=== PATIENT | female | born 1975 | race Caucasian/White ===

== ENCOUNTER 2016-12-08 20:13 | Emergency (ER) | payer SELFPAY ==
[2016-12-08] MEDS ORDERED: Ibuprofen TAB* 600 MG PO ONE (20:34)
[2016-12-08] MEDS ORDERED: Amoxicillin CAP* 500 MG PO ONE (20:59)
--- NOTE | 2016-12-08 21:08 | UC ---
Throat Pain/Nasal Rafael HPI - HPI Summary HPI Summary: Sore throat since yesterday, today feverish, RENDON, and feeling much worse. 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 - History of Current Complaint Chief Complaint: UCGeneralIllness Stated Complaint: SORE THROAT,HEADACHE Time Seen by Provider: 12/08/16 20:33 Hx Obtained From: Patient Hx Last Menstrual Period: 11/09/16 ?: No Onset/Duration: Gradual Onset, Lasting Days Severity: Moderate Cough: None Associated Signs & Symptoms: Positive: Fever. Negative: Sinus Discomfort, Nasal Discharge - Allergies/Home Medications Allergies/Adverse Reactions: Allergies Allergy/AdvReac Type Severity Reaction Status Date / Time No Known Allergies Allergy Verified 06/21/14 15:46 PMH/Surg Hx/FS Hx/Imm Hx Endocrine History Of: Reports: Diabetes - gestational diabetes Denies: Thyroid Disease Cardiovascular History Of: Denies: Cardiac Disorders, Hypertension Respiratory History Of: Denies: COPD, Asthma GI/ History Of: Denies: Ulcer Psychological History Of: Reports: Depression - Surgical History Surgical History: None - Family History Known Family History: Positive: Hypertension - Social History Lives: With Family Alcohol Use: Occasionally Substance Use Type: None Smoking Status (MU): Never Smoked Tobacco Have You Smoked in the Last Year: No - Immunization History Most Recent Influenza Vaccination: 2015/2016 season Review of Systems Constitutional: Fever, Chills, Fatigue Skin: Negative Eyes: Negative ENT: Sore Throat Respiratory: Negative Cardiovascular: Negative Gastrointestinal: Negative Genitourinary: Negative Motor: Negative Neurovascular: Negative Musculoskeletal: Negative Neurological: Headache Psychological: Negative All Other Systems Reviewed And Are Negative: Yes Physical Exam Triage Information Reviewed: Yes Appearance: Ill-Appearing - lying on the exam table, febrile Vital Signs: Initial Vital Signs Temp 102.7 F 12/08/16 20:34 Pulse 111 12/08/16 20:34 Resp 18 12/08/16 20:34 BP 82/46 12/08/16 20:34 Pulse Ox 100 12/08/16 20:34 Vital Signs Reviewed: Yes Eye Exam: Normal Eyes: Positive: Conjunctiva Clear ENT: Positive: Hearing grossly normal, Pharyngeal erythema, TMs normal, Tonsillar swelling. Negative: Nasal congestion Dental Exam: Normal Neck: Positive: Supple, Nontender, Enlarged Nodes @ - tonsillar nodes Respiratory Exam: Normal Respiratory: Positive: Chest non-tender, Lungs clear, Normal breath sounds, No respiratory distress Cardiovascular: Positive: No Murmur, Tachycardia Musculoskeletal Exam: Normal Neurological Exam: Normal Neurological: Positive: Alert Psychological Exam: Normal Skin Exam: Normal Throat Pain/Nasal Course/Dx - Differential Dx/Diagnosis Provider Diagnoses: Strep tonsillitis Discharge - Discharge Plan Condition: Stable Disposition: HOME Prescriptions: Amoxicillin (*) [Amoxicillin 875 MG (*)] 875 mg PO BID #19 tab Patient Education Materials: Strep Throat (ED) Referrals: Landy Abreu MD [Primary Care Provider] -
[2016-12-08 21:18] VITALS: BP 122/66
== END 2016-12-08 21:10 | disposition home or self-care (01) ==
LOC: UCEAST 20:13
DX: J03.00 Acute streptococcal tonsillitis, unspecified (principal); F32.9 Major depressive disorder, single episode, unspecified
CPT/HCPCS: 87651; 99212; A9270-GY; G0463

== ENCOUNTER 2017-08-16 13:35 | Emergency (ER) | payer OTHER ==
[2017-08-16 13:50] VITALS: BP 107/60
--- NOTE | 2017-08-16 14:21 | UC ---
General HPI - HPI Summary HPI Summary: 41 yo WF c/o fatigue associated with f/c/bodyaches/cough x 2 days, denies sore throat or sputum - History of Current Complaint Chief Complaint: UCGeneralIllness Stated Complaint: HEADACHE COUGH FEVER Time Seen by Provider: 08/16/17 14:13 Hx Obtained From: Patient Hx Last Menstrual Period: 07/30/17 Onset/Duration: Gradual Onset Onset Severity: Moderate Current Severity: Moderate - Allergy/Home Medications Allergies/Adverse Reactions: Allergies Allergy/AdvReac Type Severity Reaction Status Date / Time No Known Allergies Allergy Verified 08/16/17 13:42 Home Medications: Home Medications Acetaminophen TAB* [Tylenol TAB*] 650 mg PO Q4H PRN 08/16/17 [History Confirmed 08/16/17] guaiFENesin ER TAB [Mucinex*] 600 mg PO BID PRN 08/16/17 [History Confirmed 11/28] PMH/Surg Hx/FS Hx/Imm Hx - Surgical History Surgical History: None - Family History Known Family History: Positive: Hypertension - Social History Alcohol Use: Occasionally Substance Use Type: None Smoking Status (MU): Never Smoked Tobacco Have You Smoked in the Last Year: No - Immunization History Most Recent Influenza Vaccination: season Review of Systems Constitutional: Fever, Chills, Fatigue Skin: Negative Eyes: Negative ENT: Negative Respiratory: Cough Cardiovascular: Negative Gastrointestinal: Negative Genitourinary: Negative Motor: Weakness Neurovascular: Negative Musculoskeletal: Myalgia Neurological: Negative Psychological: Negative All Other Systems Reviewed And Are Negative: Yes Physical Exam Triage Information Reviewed: Yes Appearance: Ill-Appearing, Obese Vital Signs: Initial Vital Signs Temp 38.5 C 08/16/17 13:44 Pulse 106 08/16/17 13:44 Resp 18 08/16/17 13:44 BP 107/60 08/16/17 13:44 Pulse Ox 97 08/16/17 13:44 Eye Exam: Normal ENT: Positive: Pharynx normal, TMs normal. Negative: Tonsillar swelling, Tonsillar exudate Dental Exam: Normal Neck: Positive: Enlarged Nodes @ - B/L cervical LAD Respiratory Exam: Normal Respiratory: Positive: Normal breath sounds, No respiratory distress Cardiovascular Exam: Normal Abdominal Exam: Normal Musculoskeletal Exam: Normal Neurological Exam: Normal Psychological Exam: Normal Skin Exam: Normal Course/Dx - Course Course Of Treatment: Flu A positive on rapid flu- take Tamiflu as prescribed - Differential Dx - Multi-Symptom Provider Diagnoses: influenza A Discharge - Discharge Plan Condition: Stable Disposition: HOME Prescriptions: Oseltamivir Phosphate [Tamiflu] 75 mg PO BID 5 Days #10 cap Patient Education Materials: Influenza (ED) Referrals: Landy Abreu MD [Primary Care Provider] - Additional Instructions: as tolerated
== END 2017-08-16 15:05 | disposition home or self-care (01) ==
LOC: UCEAST 13:35
DX: J10.1 Influenza due to other identified influenza virus with other respiratory manifestations (principal)
CPT/HCPCS: 87502; 99212; G0463

== ENCOUNTER 2018-03-19 19:09 | Emergency (ER) | payer OTHER ==
--- NOTE | 2018-03-19 19:54 | ED ---
Lower Extremity - HPI Summary HPI Summary: This is scribe Wilberto Childers documenting for attending Lionel Lira M.D. Patient is a 42 y/o F BIBA w/ c/o left ankle pain onsetting 30 minutes ago. Patient states she was stepping into a car when she rolled her left ankle on the curb. She reports hearing a pop and experiencing left ankle pain immediately after. Patient states she had difficulty standing. On triage, pain is rated 8/10 and nothing is noted to aggravate/alleviate Sx. She states she takes Prozac. Home medications and allergies reviewed. I, Dr. Lira, personally performed the services described in this documentation as scribed in my presence and it is both accurate and complete. - History of Current Complaint Chief Complaint: EDExtremityLower Stated Complaint: LT ANKLE PAIN Time Seen by Provider: 03/19/18 19:25 Hx Obtained From: Patient Hx Last Menstrual Period: 07/30/17 Mechanism Of Injury: Twisted - left ankle, rolled on curb Onset of Pain: Immediate - pain onset immediately after rolling ankle Onset/Duration: Minutes - incident occurred 30 minutes ago Severity Currently: Severe Pain Intensity: 8 Pain Scale Used: 0-10 Numeric - 8/10 Timing: Constant Location: Is Discrete @ - left ankle Aggravating Factor(s): Nothing Alleviating Factor(s): Nothing Able to Bear Weight: No - patient states she had difficulty standing - Allergies/Home Medications Allergies/Adverse Reactions: Allergies Allergy/AdvReac Type Severity Reaction Status Date / Time No Known Allergies Allergy Verified 03/19/18 19:19 PMH/Surg Hx/FS Hx/Imm Hx Endocrine/Hematology History: Reports: Hx Diabetes - gestational diabetes Denies: Hx Thyroid Disease Cardiovascular History: Denies: Hx Hypertension Respiratory History: Denies: Hx Asthma, Hx Chronic Obstructive Pulmonary Disease (COPD), Other Respiratory Problems/Disorders GI History: Denies: Hx Ulcer Psychiatric History: Reports: Hx Depression Infectious Disease History: No Infectious Disease History: Denies: Hx Clostridium Difficile, Hx Hepatitis, Hx Human Immunodeficiency Virus (HIV), Hx of Known/Suspected MRSA, Hx Shingles, Hx Tuberculosis, Hx Known/ Suspected VRE, Hx Known/Suspected VRSA, History Other Infectious Disease, Traveled Outside the [place] in Last 30 Days - Family History Known Family History: Positive: Hypertension - Social History Alcohol Use: Occasionally Substance Use Type: Reports: None Hx Tobacco Use: No Smoking Status (MU): Never Smoked Tobacco Have You Smoked in the Last Year: No Review of Systems Negative: Fever - on vitals, temperature is 98.3 F Positive: Other - left ankle pain; patient reports not being able to stand All Other Systems Reviewed And Are Negative: Yes Physical Exam - Summary Physical Exam Summary: VITAL SIGNS: Reviewed. GENERAL: Patient is a well-developed and nourished female who is lying comfortable in the stretcher. Patient is not in any acute respiratory distress. HEAD AND FACE: No signs of trauma. No ecchymosis, hematomas or skull depressions. No sinus tenderness. EYES: PERRLA, EOMI x 2, No injected conjunctiva, no nystagmus. EARS: Hearing grossly intact. Ear canals and tympanic membranes are within normal limits. MOUTH: Oropharynx within normal limits. NECK: Supple, trachea is midline, no adenopathy, no JVD, no carotid bruit, no c- spine tenderness, neck with full ROM. CHEST: Symmetric, no tenderness at palpation LUNGS: Clear to auscultation bilaterally. No wheezing or crackles. CVS: Regular rate and rhythm, S1 and S2 present, no murmurs or gallops appreciated. ABDOMEN: Soft, non-tender. No signs of distention. No rebound no guarding, and no masses palpated. Bowel sounds are normal. EXTREMITIES: Edema and tenderness over left lateral malleolus with decreased ROM ; no cyanosis or clubbing. No other abnormal findings. NEURO: Alert and oriented x 3. No acute neurological deficits. Speech is normal and follows commands. SKIN: Dry and warm Triage Information Reviewed: Yes Vital Signs On Initial Exam: Initial Vitals Temp Pulse Resp BP Pulse Ox 98.3 F 69 16 118/84 96 03/19/18 19:10 03/19/18 19:10 03/19/18 19:10 03/19/18 19:10 03/19/18 19:10 Vital Signs Reviewed: Yes Diagnostics - Vital Signs Vital Signs Temp Pulse Resp BP Pulse Ox 03/19/18 19:10 98.3 F 69 16 118/84 96 - Laboratory Lab Statement: Any lab studies that have been ordered have been reviewed, and results considered in the medical decision making process. - Radiology left ankle X-ray Xray Interpretation: No Acute Changes Radiology Interpretation Completed By: ED Physician - Negative for fracture or malalignment. Consider potential lateral supporting ligament injury. This report was reviewed by ED physician. Lower Extremity Course/Dx - Course Assessment/Plan: Patient is a 42 y/o F BIBA w/ c/o left ankle pain onsetting 30 minutes ago. Patient states she was stepping into a car when she rolled her left ankle on the curb. She reports hearing a pop and experiencing left ankle pain immediately after. Patient states she could not stand. On triage, pain is rated 8/10 and nothing is noted to aggravate/alleviate Sx. During ED course, patient was given Tylenol, 650 mg PO ED ONCE. Left ankle X-ray with impressions as follows: negative for fracture or malalignment, consider potential lateral supporting ligament injury. Results were discussed with patient. She will be discharged to home with diagnosis of left ankle sprain. The patient is advised to keep left leg elevated, apply ice to afflicted area, and to take Tylenol or Motrin for ankle pain. She was also told to follow up with orthopedic doctor, Dr. Cole, in 1-2 days. Patient is agreeable with the plan and all questions were answered to satisfaction. - Diagnoses Provider Diagnoses: Left ankle sprain Discharge - Sign-Out/Discharge Documenting (check all that apply): Patient Departure - discharge - Discharge Plan Condition: Stable Disposition: HOME Patient Education Materials: Ankle Sprain (ED) Referrals: Nasim Cole MD [Medical Doctor] - 2 Days Additional Instructions: Patient is advised to keep left leg elevated, apply ice to afflicted area, and to take Tylenol or Motrin for ankle pain. Follow up with orthopedic doctor, Dr. Cole, in 1-2 days. Return to ED for any changing or worsening symptoms.
[2018-03-19] MEDS ORDERED: Acetaminophen TAB* 325 MG PO ONE (19:59)
--- NOTE | 2018-03-19 20:01 | RAD ---
Indication: LEFT ankle pain post rolling injury. Comparison: No relevant prior exams available on the [facility] PACS for comparison. Technique: AP, mortise, and lateral views LEFT ankle. Report: Negative for fracture or malalignment. Moderate soft tissue swelling over the lateral malleolus. Small Achilles tendon insertion and plantar fascia origin bone spurs. IMPRESSION: #. Negative for fracture or malalignment. #. Consider potential lateral supporting ligament injury.
[2018-03-19 21:11] VITALS: BP 107/77
== END 2018-03-19 21:10 | disposition home or self-care (01) ==
LOC: ED 19:09
DX: S93.402A Sprain of unspecified ligament of left ankle, initial encounter (principal); X50.9XXA Other and unspecified overexertion or strenuous movements or postures, initial encounter; Y92.480 Sidewalk as the place of occurrence of the external cause
CPT/HCPCS: 99282; A9270-GY

== ENCOUNTER 2019-01-06 07:03 | Emergency (ER) | payer OTHER ==
[2019-01-06 07:20] VITALS: BP 141/95
[2019-01-06] MEDS ORDERED: Ondansetron INJ* 2 MG/ML VIAL IV ONE (07:36)
[2019-01-06] MEDS ORDERED: NS 0.9% 1000 ML** 1,000 ML IV ONE (07:36)
--- NOTE | 2019-01-06 07:37 | UC ---
Abdominal Pain Female HPI - HPI Summary HPI Summary: Patient presents to urgent care with her . Patient is a 43-year-old female who woke from sleep between 6 and 6:30. Patient states she had severe right upper quadrant pain. Patient states it radiated to her right breast. Patient denies history of similar. No pain in her back. Patient states she felt very warm and sweaty. Patient with nausea. Patient denies shortness of breath although says it hurts to take a deep breath on the right side. Patient had barbecue last night. Patient has never had any abdominal surgeries. Patient without any known history of gallbladder disease. Upon arrival to urgent care patient states the pain intensified. Patient became slightly anxious. Patient started to hyperventilate and had episode of emesis. Patient states at that time she felt her arms were tingly. Patient denies any franc chest pain. Patient without cardiac disease. Patient has never had surgery. Patient states she is not . Patient medications reviewed this visit. - History of Current Complaint Chief Complaint: UCAbdominalPain Stated Complaint: RT SIDE PAIN Time Seen by Provider: 01/06/19 07:28 Hx Obtained From: Patient Hx Last Menstrual Period: now Pain Intensity: 8 Allergies/Adverse Reactions: Allergies Allergy/AdvReac Type Severity Reaction Status Date / Time No Known Allergies Allergy Verified 01/06/19 07:20 PMH/Surg Hx/FS Hx/Imm Hx Previously Healthy: Yes - Surgical History Surgical History: None - Family History Known Family History: Positive: Hypertension, Non-Contributory - Social History Lives: With Family Alcohol Use: Occasionally Substance Use Type: None Smoking Status (MU): Never Smoked Tobacco Have You Smoked in the Last Year: No - Immunization History Most Recent Influenza Vaccination: 2016/2016 season Review of Systems All Other Systems Reviewed And Are Negative: Yes Constitutional: Positive: Negative Skin: Positive: Negative Gastrointestinal: Positive: Abdominal Pain, Vomiting - 1 episode in UC, Nausea Genitourinary: Positive: Negative Is Patient Immunocompromised?: No Physical Exam - Summary Physical Exam Summary: Vital Signs Reviewed: Yes A+Ox3, appears uncomfortable, holding RUQ and emesis basin Eyes: Conjunctiva Clear, ENT: Hearing grossly normal mmmoist Neck: Positive: Supple Respiratory: Positive: No respiratory distress, No accessory muscle use + CTA throughout no w/r Cardiovascular: RRR nl s1, s2 no m/r CBT <2 sec abd + TTP RUQ, epigastric no guarding, no rebound Musculoskeletal Exam: SALAZAR x 4 without difficulty Strength Intact, ROM Intact Neurological: Positive: Alert, + sensation throughout Psychological: Positive: Normal Response To Family Skin: Positive: no rash, no ecchymosis Triage Information Reviewed: Yes Vital Signs: Initial Vital Signs Temp 98.2 F 01/06/19 07:16 Pulse 71 01/06/19 07:16 Resp 20 01/06/19 07:16 BP 141/95 01/06/19 07:16 Pulse Ox 100 01/06/19 07:16 Diagnostics - EKG Cardiac Rate: NL - 60 Cardiac Rhythm: Sinus: Normal Ectopy: None ST Segment: Normal Abd Pain Female Course/Dx - Course Course Of Treatment: Patient presents to urgent care reporting waking from sleep between 6 and 6:30 with epigastric right upper quadrant pain. Patient had barbecue for dinner last night. Patient with nausea. Arrival to the emergency department, patient became slightly panicky. Patient had a hyperventilation episode of emesis reported tingling in her arms. This improved. Patient vital signs show slightly elevated blood pressure. Likely related to pain. Pt with epigastric RUQ pain EKG reviewed. BG [address] IV, zofran Pt declined Morphine - will give toradol pt comfortable and in agreement with plan - Differential Dx/Diagnosis Provider Diagnosis: Abdominal pain Discharge - Sign-Out/Discharge Documenting (check all that apply): Patient Departure All imaging exams completed and their final reports reviewed: No Studies - Discharge Plan Condition: Good Disposition: TRANS HIGHER LVL OF CARE FAC Referrals: Landy Abreu MD [Primary Care Provider] - - Billing Disposition and Condition Condition: GOOD Disposition: Trans Higher Lvl of Care Fac
[2019-01-06] MEDS ORDERED: Ketorolac INJ* 30 MG/ML 1 ML VIAL IV PUSH ONE (07:42)
== END 2019-01-06 07:55 | disposition short-term general hospital (02) ==
LOC: UCEAST 07:03
DX: R10.11 Right upper quadrant pain (principal); R11.0 Nausea
CPT/HCPCS: 96360; 96375; 96376; 99213; G0463; J1885; J2405

== ENCOUNTER 2019-01-06 08:14 | Emergency (ER) | payer OTHER ==
[2019-01-06 08:49] LABS: ABS Lymphocytes 1.3 10^3/ul (1.0-4.8); ABS Monocytes 0.3 10^3/ul (0-0.8); ABS Neutrophils 3.3 10^3/ul (1.5-7.7); Eosinophil % 0.6 %; Hematocrit 38 % (35-47); Hemoglobin 12.6 g/dL (12.0-16.0); Lymphocyte % 26.5 %; Mean Corpuscular HGB Conc 34 g/dL (31-36); Mean Corpuscular Hemoglobin 28 pg (27-31); Mean Corpuscular Volume 83 fL (80-97); Mean Platelet Volume 7.4 fL (7.4-10.4); Platelet Count 241 10^3/uL (150-450); Red Blood Count 4.54 10^6 /uL (3.70-4.87); Red Cell Distribution Width 14 % (10.5-15)
[2019-01-06 09:09] LABS: Indirect Bilirubin 0.2 mg/dL (0.3-1.0); Total Bilirubin 0.3 mg/dL (0.2-1.0)
[2019-01-06 09:11] LABS: Albumin 3.8 g/dL (3.2-5.2); Albumin/Globulin Ratio 1.3 (1-3); BUN/Creatinine Ratio 20.3 (8-20); C Reactive Protein 5.8 mg/L (<8.01); Calcium 8.4 mg/dL (8.6-10.3); EGFR African American 95.7 (>60); EGFR Non-African American 79.1 (>60); Globulin 2.9 g/dL (2-4); Potassium 3.8 mmol/L (3.5-5.0); Total Bilirubin 0.3 mg/dL (0.2-1.0); Total Protein 6.7 g/dL (6.4-8.9)
[2019-01-06 10:34] LABS: Urine Appearance Cloudy; Urine Bacteria Absent (Absent); Urine Bilirubin Negative (Negative); Urine Blood 1+ (Negative); Urine Color Yellow; Urine Glucose Negative (Negative); Urine Ketones Negative (Negative); Urine Nitrite Negative (Negative); Urine Protein Negative (Negative); Urine Red Blood Cell Absent (Absent); Urine Specific Gravity 1.015 (1.010-1.030); Urine Squamous Epithelial Cell Present (Absent); Urine Urobilinogen Negative (Negative); Urine White Blood Cell Trace(0-5/hpf) (Absent)
[2019-01-06 12:34] VITALS: BP 112/66
--- NOTE | 2019-01-06 12:39 | ED ---
Abdominal Pain/Female - HPI Summary HPI Summary: Patient is a 43-year-old female with no significant PMH presenting to the ED from urgent care with RUQ pain radiating to the left upper quadrant and epigastric region intermittently. She states she awoke with the symptoms this morning. She states she had some barbecue and macaroni and cheese last night for dinner, but denies any pain immediately following. She awoke with an aching and intermittent stabbing pain to the right upper quadrant. She states the pain has improved since having the Toradol and Zofran over at the urgent care. She denies any cardiac symptoms or pain. She does endorse shortness of breath and tingling to the bilateral arms, but this was immediately following what she states was likely an anxiety attack. is at bedside. - History of Current Complaint Chief Complaint: EDAbdPain Stated Complaint: ABD PAIN PER EMS Time Seen by Provider: 01/06/19 08:14 Hx Obtained From: Patient Hx Last Menstrual Period: now ?: No Onset/Duration: Sudden Onset Timing: Constant Severity Initially: Moderate Severity Currently: Moderate Pain Intensity: 5 Pain Scale Used: 0-10 Numeric Location: Discrete At: RUQ Radiates: Yes Radiates to: Other - LUQ Character: Cramping Aggravating Factor(s): Nothing Alleviating Factor(s): Nothing Associated Signs and Symptoms: Positive: Negative - Risk Factors Ectopic Risk Factor: Negative Ovarian Torsion Risk Factor: Negative Allergies/Adverse Reactions: Allergies Allergy/AdvReac Type Severity Reaction Status Date / Time No Known Allergies Allergy Verified 01/06/19 07:20 PMH/Surg Hx/FS Hx/Imm Hx Previously Healthy: Yes Endocrine/Hematology History: Reports: Hx Diabetes - gestational diabetes Denies: Hx Thyroid Disease Cardiovascular History: Denies: Hx Hypertension Respiratory History: Denies: Hx Asthma, Hx Chronic Obstructive Pulmonary Disease (COPD), Other Respiratory Problems/Disorders GI History: Denies: Hx Ulcer Psychiatric History: Reports: Hx Depression - Immunization History Hx Pertussis Vaccination: No Immunizations Up to Date: Yes Infectious Disease History: No Infectious Disease History: Denies: Hx Clostridium Difficile, Hx Hepatitis, Hx Human Immunodeficiency Virus (HIV), Hx of Known/Suspected MRSA, Hx Shingles, Hx Tuberculosis, Hx Known/ Suspected VRE, Hx Known/Suspected VRSA, History Other Infectious Disease, Traveled Outside the [place] in Last 30 Days - Family History Known Family History: Positive: Hypertension, Non-Contributory - Social History Occupation: Employed Full-time Lives: With Family Alcohol Use: Occasionally Hx Substance Use: No Substance Use Type: Reports: None Hx Tobacco Use: No Smoking Status (MU): Never Smoked Tobacco Have You Smoked in the Last Year: No Review of Systems Constitutional: Negative Negative: Fever, Chills, Fatigue, Skin Diaphoresis Negative: Epistaxis, Dental Pain Negative: Palpitations, Chest Pain Negative: Shortness Of Breath, Cough Positive: Abdominal Pain, Vomiting - 1x, Nausea. Negative: Diarrhea Genitourinary: Negative Positive: no symptoms reported, see HPI Negative: Rash, Bruising Neurological: Negative All Other Systems Reviewed And Are Negative: Yes Physical Exam Triage Information Reviewed: Yes Vital Signs On Initial Exam: Initial Vitals Temp Pulse Resp BP Pulse Ox 97.9 F 59 18 112/35 100 01/06/19 08:15 01/06/19 08:15 01/06/19 08:15 01/06/19 08:15 01/06/19 08:15 Vital Signs Reviewed: Yes Appearance: Positive: Well-Nourished Skin: Positive: Warm, Skin Color Reflects Adequate Perfusion Head/Face: Positive: Normal Head/Face Inspection Eyes: Positive: EOMI, Conjunctiva Clear Neck: Positive: Supple, No Lymphadenopathy Respiratory/Lung Sounds: Positive: Clear to Auscultation, Breath Sounds Present Cardiovascular: Positive: RRR, Pulses are Symmetrical in both Upper and Lower Extremities Abdomen Description: Positive: Other: - RUQ pain; positive murphys Musculoskeletal: Positive: Normal, Strength/ROM Intact Neurological: Positive: Sensory/Motor Intact, Alert, Oriented to Person Place, Time, Speech Normal Psychiatric: Positive: Affect/Mood Appropriate Diagnostics - Vital Signs Vital Signs Temp Pulse Resp BP Pulse Ox 01/06/19 12:27 58 112/66 98 01/06/19 11:00 57 95 01/06/19 10:51 59 104/68 96 01/06/19 10:23 77 106/76 97 01/06/19 10:00 66 96 01/06/19 09:21 56 107/69 86 01/06/19 09:00 56 95 01/06/19 08:52 63 95/58 93 01/06/19 08:36 50 116/73 95 01/06/19 08:22 54 112/35 97 01/06/19 08:15 97.9 F 59 18 112/35 100 - Laboratory Lab Results: Lab Results 01/06/19 01/06/19 01/06/19 Range/Units 08:34 08:34 08:34 WBC 5.0 (3.5-10.8) 10^3/uL RBC 4.54 (3.70-4.87) 10^6 /uL Hgb 12.6 (12.0-16.0) g/dL Hct 38 (35-47) % MCV 83 (80-97) fL MCH 28 (27-31) pg MCHC 34 (31-36) g/dL RDW 14 (10.5-15) % Plt Count 241 (150-450) 10^3/uL MPV 7.4 (7.4-10.4) fL Neut % (Auto) 65.8 % Lymph % (Auto) 26.5 % [place] % (Auto) 6.9 % Eos % (Auto) 0.6 % Baso % (Auto) 0.2 % Absolute Neuts (auto) 3.3 (1.5-7.7) 10^3/ul Absolute Lymphs (auto) 1.3 (1.0-4.8) 10^3/ul Absolute Monos (auto) 0.3 (0-0.8) 10^3/ul Absolute Eos (auto) 0.0 (0-0.6) 10^3/ul Absolute Basos (auto) 0.0 (0-0.2) 10^3/ul Absolute Nucleated RBC 0.0 10^3/ul Nucleated RBC % 0.0 Sodium 138 (135-145) mmol/L Potassium 3.8 (3.5-5.0) mmol/L Chloride 109 (101-111) mmol/L Carbon Dioxide 22 (22-32) mmol/L Anion Gap 7 (2-11) mmol/L BUN 16 (6-24) mg/dL Creatinine 0.79 (0.51-0.95) mg/dL Est GFR ( Amer) 95.7 (>60) Est GFR (Non-Af Amer) 79.1 (>60) BUN/Creatinine Ratio 20.3 H (8-20) Glucose 105 H (70-100) mg/dL Calcium 8.4 L (8.6-10.3) mg/dL Total Bilirubin 0.30 0.30 (0.2-1.0) mg/dL Direct Bilirubin 0.10 (0.03-0.18) mg/dL Indirect Bilirubin 0.2 L (0.3-1.0) mg/dL AST 15 (13-39) U/L ALT 14 (7-52) U/L Alkaline Phosphatase 31 L (34-104) U/L Troponin I 0.00 (<0.04) ng/mL C-Reactive Protein 5.80 (<8.01) mg/L Total Protein 6.7 (6.4-8.9) g/dL Albumin 3.8 (3.2-5.2) g/dL Globulin 2.9 (2-4) g/dL Albumin/Globulin Ratio 1.3 (1-3) Amylase 32 (29-103) U/L Lipase 26 (11.0-82.0) U/L Urine Color Urine Appearance Urine pH (5-9) Ur Specific [place] (1.010-1.030) Urine Protein (Negative) Urine Ketones (Negative) Urine Blood (Negative) Urine Nitrate (Negative) Urine Bilirubin (Negative) Urine Urobilinogen (Negative) Ur Leukocyte Esterase (Negative) Urine WBC (Auto) (Absent) Urine RBC (Auto) (Absent) Ur Squamous Epith Cells (Absent) Urine Bacteria (Absent) Urine Glucose (Negative) 01/06/19 Range/Units 09:55 WBC (3.5-10.8) 10^3/uL RBC (3.70-4.87) 10^6 /uL Hgb (12.0-16.0) g/dL Hct (35-47) % MCV (80-97) fL MCH (27-31) pg MCHC (31-36) g/dL RDW (10.5-15) % Plt Count (150-450) 10^3/uL MPV (7.4-10.4) fL Neut % (Auto) % Lymph % (Auto) % [place] % (Auto) % Eos % (Auto) % Baso % (Auto) % Absolute Neuts (auto) (1.5-7.7) 10^3/ul Absolute Lymphs (auto) (1.0-4.8) 10^3/ul Absolute Monos (auto) (0-0.8) 10^3/ul Absolute Eos (auto) (0-0.6) 10^3/ul Absolute Basos (auto) (0-0.2) 10^3/ul Absolute Nucleated RBC 10^3/ul Nucleated RBC % Sodium (135-145) mmol/L Potassium (3.5-5.0) mmol/L Chloride (101-111) mmol/L Carbon Dioxide (22-32) mmol/L Anion Gap (2-11) mmol/L BUN (6-24) mg/dL Creatinine (0.51-0.95) mg/dL Est GFR ( Amer) (>60) Est GFR (Non-Af Amer) (>60) BUN/Creatinine Ratio (8-20) Glucose (70-100) mg/dL Calcium (8.6-10.3) mg/dL Total Bilirubin (0.2-1.0) mg/dL Direct Bilirubin (0.03-0.18) mg/dL Indirect Bilirubin (0.3-1.0) mg/dL AST (13-39) U/L ALT (7-52) U/L Alkaline Phosphatase (34-104) U/L Troponin I (<0.04) ng/mL C-Reactive Protein (<8.01) mg/L Total Protein (6.4-8.9) g/dL Albumin (3.2-5.2) g/dL Globulin (2-4) g/dL Albumin/Globulin Ratio (1-3) Amylase (29-103) U/L Lipase (11.0-82.0) U/L Urine Color Yellow Urine Appearance Cloudy Urine pH 8.0 (5-9) Ur Specific [place] 1.015 (1.010-1.030) Urine Protein Negative (Negative) Urine Ketones Negative (Negative) Urine Blood 1+ A (Negative) Urine Nitrate Negative (Negative) Urine Bilirubin Negative (Negative) Urine Urobilinogen Negative (Negative) Ur Leukocyte Esterase Negative (Negative) Urine WBC (Auto) Trace(0-5/hpf) (Absent) Urine RBC (Auto) Absent (Absent) Ur Squamous Epith Cells Present A (Absent) Urine Bacteria Absent (Absent) Urine Glucose Negative (Negative) Result Diagrams: 01/06/19 08:34 01/06/19 08:34 Lab Statement: Any lab studies that have been ordered have been reviewed, and results considered in the medical decision making process. Abdominal Pain Fem Course/Dx - Course Course Of Treatment: During the course of treatment, the patient's evaluated for RUQ pain which is radiating to the epigastric region. There is no radiation to the shoulder down bilateral arms. She denies any shortness of breath at this time. She denies any headache, diaphoresis, chills, UA symptoms , back pain, abdominal pain. She denies any weakness or fatigue. Physical exam reveals a positive Cortés sign with pain in the RUQ without pain to the other 3 quadrants on palpation. Denies any UTI symptoms. Lungs CTA, RRR. Ultrasound of the right upper quadrant obtained which is negative for cholecystitis, but shows cholelithiasis. On reexamination, patient is asymptomatic and denies any pain currently. She will follow-up with surgery for cholelithiasis and offers no complaints at this time. Patient denies chance of . Currently on menses. Endorses one episode of nausea and vomiting, however she states this was related to anxiety episode prior to arrival. She denies any nausea or vomiting currently. - Diagnoses Differential Diagnosis: Positive: Other - RUQ pain, cholelithiasis Provider Diagnoses: Cholelithiases Discharge - Sign-Out/Discharge Documenting (check all that apply): Patient Departure Patient Received Moderate/Deep Sedation with Procedure: No - Discharge Plan Condition: Stable Disposition: HOME Patient Education Materials: Gallstones (ED) Referrals: Landy Abreu MD [Primary Care Provider] - Ernesto Pike MD [Medical Doctor] - Additional Instructions: Please follow-up with Dr. Pike in surgery if symptoms persist or worsen Avoid fatty foods if he develop any worsening or changing symptoms - Billing Disposition and Condition Condition: STABLE Disposition: Home
== END 2019-01-06 12:59 | disposition home or self-care (01) ==
LOC: ED 08:14
DX: K80.20 Calculus of gallbladder without cholecystitis without obstruction (principal)
CPT/HCPCS: 36415; 71046; 76705; 80053; 81003; 81015; 82150; 82247; 82248; 83690; 84484; 85025; 86140; 87086; 99283

== ENCOUNTER 2019-01-27 21:22 | Emergency (ER) | payer OTHER ==
--- NOTE | 2019-01-27 21:26 | UC ---
Respiratory Complaint HPI - HPI Summary HPI Summary: 43 yo female presents with dry cough for the last week. She tells me that she has been having a dry cough that started about a week ago. She attributes this to allergies and started taking mucinex and zyrtec with little relief of her symptoms. She does note some post nasal drip and a slight runny nose. Her at home is concerned pt has bronchitis. Pt states that she is coughing so hard it is causing her to have "dribble" urinary incontinence. Denies fever, chills, sore throat, SOB, wheezing, chest pain, abdominal pain, flank pain, dysuria, hematuria. She does not smoke. - History of Current Complaint Stated Complaint: COUGH Time Seen by Provider: 01/27/19 21:25 Hx Obtained From: Patient Hx Last Menstrual Period: now Onset/Duration: Gradual Onset Severity Currently: None Character: Cough: Nonproductive - Allergies/Home Medications Allergies/Adverse Reactions: Allergies Allergy/AdvReac Type Severity Reaction Status Date / Time No Known Allergies Allergy Verified 01/27/19 21:26 Home Medications: Home Medications guaiFENesin [Mucinex] 600 mg PO ONCE 01/27/19 [History Confirmed 01/27/19] PMH/Surg Hx/FS Hx/Imm Hx Psychological History: Anxiety, Depression - Surgical History Surgical History: None - Family History Known Family History: Positive: Hypertension - Social History Occupation: Employed Full-time Lives: With Family Alcohol Use: Occasionally Substance Use Type: None Smoking Status (MU): Never Smoked Tobacco Have You Smoked in the Last Year: No - Immunization History Most Recent Influenza Vaccination: 2016/2016 season Review of Systems All Other Systems Reviewed And Are Negative: Yes Constitutional: Positive: Negative Skin: Positive: Negative Eyes: Positive: Negative ENT: Positive: Negative Respiratory: Positive: Cough Cardiovascular: Positive: Negative Gastrointestinal: Positive: Negative Neurovascular: Positive: Negative Neurological: Positive: Negative Psychological: Positive: Negative Physical Exam - Summary Physical Exam Summary: GENERAL: NAD. WDWN. No pain distress. SKIN: No rashes, sores, lesions, or open wounds. HEENT: Head: AT/NC Eyes: EOM intact. Conjunctiva clear without inflammation or discharge. Ears: Hearing grossly normal. TMs intact, no bulging, erythema, or edema. Nose: Nasal mucosa pink and moist. NTTP maxillary and frontal sinus. Throat: Posterior oropharynx without exudates, erythema, or tonsillar enlargement. Uvula midline. NECK: Supple. Nontender. No lymphadenopathy. CHEST: CTAB. No r/r/w. No accessory muscle use. Breathing comfortably and in no distress. CV: RRR. Without m/r/g. Pulses intact. Cap refill <2seconds NEURO: Alert. PSYCH: Age appropriate behavior. Triage Information Reviewed: Yes Vital Signs: Vital Signs: Temp Pulse Resp BP Pulse Ox 97.7 F 66 16 112/77 99 01/27/19 21:27 01/27/19 21:27 01/27/19 21:27 01/27/19 21:27 01/27/19 21:27 Laboratory Tests 01/27/19 21:42 POC Urine Color Light yellow POC Urine Clarity Slightly cloudy POC Urine pH 5.5 POC Ur Specif [place] 1.010 POC Urine Protein Negative POC Ur Glucose (UA) Negative POC Urine Ketones Negative POC Urine Blood Trace-lysed A POC Urine Nitrite Negative POC Urine Bilirubin Negative POC Urine Urobilinogen 0.2 POC U Leukocyte Esteras Negative Vital Signs Reviewed: Yes Respiratory Course/Dx - Course Course Of Treatment: UA checked today for any underlying UTI given stress incontinence. UA was negative. Suspect allergies vs irritant cough. We did discuss obtaining a CXR today, but pt declined. Rx for tessalon and cough syrup at bedtime. Advised to continue mucinex and zyrtec. - Differential Dx/Diagnosis Provider Diagnosis: Cough Discharge - Sign-Out/Discharge Documenting (check all that apply): Patient Departure All imaging exams completed and their final reports reviewed: No Studies - Discharge Plan Condition: Stable Disposition: HOME Prescriptions: Benzonatate CAP* [Tessalon 100 MG CAP*] 100 mg PO TID PRN #21 cap PRN Reason: Cough Codeine Phosphate/Guaifenesin [Guaifen-Codeine 100-10 mg/5 ml] 5 ml PO BEDTIME PRN #35 ml MDD 5mL PRN Reason: Cough Patient Education Materials: Allergies (ED), Acute Cough (ED) Referrals: Landy Abreu MD [Primary Care Provider] - Additional Instructions: If you develop a fever, shortness of breath, chest pain, new or worsening symptoms - please call your PCP or go to the ED immediately. 1) Continue taking your zyrtec and mucinex 2) If your symptoms worsen or do not improve over the next 5-7 days, please be rechecked - Billing Disposition and Condition Condition: STABLE Disposition: Home - Attestation Statements Provider Attestation: I was available for consult. This patient was seen by the JERRICA. The patient was not presented to, seen by, or examined by me. -Erasmo
--- OUTSIDE RECORDS SUMMARY | 2019-01-27 21:27 | XMS REPORT | Continuity of Care Document ---
:1975 External Reference #:[id number] Author Name Landy Cruz M.D., R.D. Address [address] [place] [id number] Care Team Providers Name Role Phone Landy Cruz M.D., R.D. Care Team Information Claims Clerk Unavailable Payers Date Identification Numbers Payment Provider Subscriber Expires: 2012 Policy Number: [id number] [facility] Vesna Jan Group Number: [id number] [address] PayID: [id number] [place] [address] Policy Number: [id number] [employer]oya Group Number: [id number] [address] PayID: [id number] [place] [address] Problems Active Problems Provider Date Depressive disorder ALIA Nguyen Onset: 06/26/2013 Family History Date Family Member(s) Observation Comments Onset: (age 57 Father Cancer, Prostate Years) Father due to COPD () Father COPD Father due to CAD () Mother Hypercholesterolemia First Brother Hypercholesterolemia First Brother Epilepsy : (age 57 Maternal Grandfather due to Cancer, Prostate Years) Maternal Grandmother Diabetes Onset: (age 57 Paternal Uncles Cancer, Prostate Years) Social History Type Date Description Comments Sex Unknown Marital Status Marital Status Civil Union Lives With Female Partner Lives With Sons twins Lives With grand mother Pets 3 cats Pets 2 dogs Tobacco Use Start: Unknown Never Smoked Cigarettes ETOH Use Negative For Currently consumes alcohol ETOH Use Occasionally consumed alcohol in the past Tobacco Use Start: Unknown Patient has never smoked Smoking Status Reviewed: 01/17/19 Patient has never smoked Exercise Type/Frequency Exercises sporadically Allergies, Adverse Reactions, Alerts Description No Known Drug Allergies Medications Active Medications SIG Qnty Indications Ordering Provider Date Fluoxetine HCL take one capsule 30caps Dustin Villarreal, 07/06/2014 40mg by mouth every MATERIAL SPREADER-C Capsules day Vitamin D-1000 1 po qd 90tabs Alisa Augustin 06/26/2013 1000Unit Minerva Jones Tablets History Medications Amoxicillin 1 tablet by 20tabs Raeann Zapien, 11/29/2018 - 500mg Tablets mouth twice CODING ASSISTANT 01/17/2019 daily x 10days. Oxycodone-Acetaminophe 1 or 2 po qid 45tabs M25.561 Dustin Sandoval 08/20/2015 - n prn severe pain Phil, MATERIAL SPREADER-C 08/30/2018 5-325mg Tablets Fluoxetine HCL Take One Capsule 30caps Devi Augustin 06/26/2013 - 10mg By Mouth Every Minerva Jones 07/06/2014 Capsules Day In Addition To The 20MG Dose For A Total Daily Dose Of 30MG Once Daily Guaifenesin/Codeine 1 - 2 teaspoon 240ml 465.9 Gladis Cueto, 02/18/2013 - po q 4 hours prn MATERIAL SPREADER-C 06/26/2013 100-10mg/5ML Syrup cough, causes drowsiness Fluticasone Propionate 2 sprays each 16gm 465.9 Gladis Cueto, 2012 - nostril daily MATERIAL SPREADER-C 06/26/2013 50mcg/Act Suspension Cyclobenzaprine HCL 1/2 - 1 po tid 30tabs 784.0 Gladis Cueto, 2011 - 10mg for tension MATERIAL SPREADER-C 06/26/2013 Tablets headache Ergocalciferol Tablets take 1 tablet 8tabs Gladis Cueto, 01/24/2012 - twice a week for MATERIAL SPREADER-C 06/26/2013 50,000Units Tablets 4 weeks Clindamycin Phosphate apply a thin 60gm 706.1 Gladis Cueto, 01/12/2012 - 1% film to face MATERIAL SPREADER-C 07/06/2014 Gel once or twice daily Sulfacetamide Sodium 2 gtts both eyes 1bottle Dustin RMarley 11/25/2010 - 10% 4 times daily ALIA Villarreal 01/12/2012 Solution for 5 days Robitussin ac 1-2 tsp po 150ml 462 Rickiewafsaneh R. 11/21/2007 - q4-6hr prn ALIA Villarreal 02/22/2009 cough/pain Zithromax 2 on day one, 6tabs 461.0 Harmony Kwon 10/04/2007 - 250mg Tablets then one qd x4 Minerva Mahmood 02/22/2009 days Fluoxetine 1 po qd 30caps 311 Alisa Augustin 01/30/2006 - 20mg Capsules Minerva Jonse 07/06/2014 Albuterol Metered Dose 2-To-4 Seperate 17gm 786.2 Harmony Kwon 11/06/2005 - Inhaler Puffs Every 4 Minerva Mahmood 09/30/2007 Inhaler Hours Amoxicillin One PO bid For 28tabs 465.9 Coty A. 09/01/2005 - 875mg Tablets 14 Days Alfonso, 09/30/2007 [facility] Fluoxetine one po qd for A 60caps 311 Harmony Kwon 07/04/2005 - 10mg Capsules week, then two Minerva Mahmood 01/30/2006 po qd Amoxicillin 1 bid x 10 days 20caps Chantal Hinds, 12/15/2002 - 875mg Caps CODING ASSISTANT 07/04/2005 Excuse From Work out of work Chantal Hinds, 06/24/2002 - from:06/24/02 CODING ASSISTANT 07/04/2005 return to work on:06/25/02 Lamisil one qd with food 42tabs Harmony Kwon 12/03/2001 - 250mg Tablets for seven days Minerva Mahmood 07/04/2005 at the beginning of each month for six months Afluria Quadrivalent Use as Directed Unknown - 11/29/2018 2018-19 Suspension Medications Administered in Office Medication SIG Qnty Indications Ordering Provider Date TB,Intradermal (PPD, Mantoux) ALIA Nguyen 01/12/2012 Injection Immunizations CPT Code Status Date Vaccine Lot # [id number] Given 05/21/2018 Influenza Virus Vaccine, Quadrivalent, 3 Yr > Quad, Preserv Free 47904 Given 07/06/2014 Influenza Virus Vaccine, Quadrivalent, 3 Yr > [id number] Quad, Preserv Free 24227 Given 06/26/2013 Influenza Vaccine-Preservative Free 3 Yrs And [id number] Above 77385 Given 04/08/2010 Tdap (Adacel) [id number] 48560 Given 03/13/2006 DT (Adult) Vital Signs Date Vital Result Comment 01/17/2019 9:48am Weight 195.00 lb Weight 88.452 kg BP Systolic 130 mmHg BP Diastolic 80 mmHg Heart Rate 85 /min Body Temperature 97.7 F Respiratory Rate 16 /min Height 64 inches 5'4" BMI (Body Mass Index) 33.5 kg/m2 Last Menstrual Period [id number] O2 % BldC Oximetry 97 % 11/29/2018 2:42pm Weight 198.00 lb Weight 89.813 kg BP Systolic 104 mmHg BP Diastolic 70 mmHg Heart Rate 66 /min Body Temperature 98.2 F Respiratory Rate 16 /min O2 % BldC Oximetry 98 % 08/30/2018 11:27am Weight 197.00 lb Weight 89.359 kg BP Systolic 112 mmHg BP Diastolic 70 mmHg Heart Rate 74 /min Body Temperature 98.3 F O2 % BldC Oximetry 94 % 08/22/2017 9:56am Weight 194.00 lb Weight 87.998 kg BP Systolic 96 mmHg BP Diastolic 64 mmHg Heart Rate 72 /min Body Temperature 98.5 F Respiratory Rate 16 /min O2 % BldC Oximetry 98 % 08/20/2015 3:39pm Weight 198.00 lb Weight 89.813 kg BP Systolic 96 mmHg BP Diastolic 66 mmHg Heart Rate 72 /min Body Temperature 98.3 F 03/03/2015 4:39pm Weight 193.00 lb Weight 87.545 kg BP Systolic 110 mmHg BP Diastolic 78 mmHg Heart Rate 56 /min Body Temperature 97.0 F 07/06/2014 1:50pm Weight 193.00 lb Weight 87.545 kg BP Systolic 100 mmHg BP Diastolic 60 mmHg Heart Rate 68 /min Height 64 inches 5'4" BMI (Body Mass Index) 33.1 kg/m2 Last Menstrual Period [id number] 06/26/2013 2:11pm Weight 182.00 lb Weight 82.555 kg BP Systolic 100 mmHg BP Diastolic 54 mmHg Heart Rate 76 /min Height 64.5 inches 5'4.50" BMI (Body Mass Index) 30.8 kg/m2 02/18/2013 11:56am Weight 179.00 lb Weight 81.194 kg BP Systolic 92 mmHg BP Diastolic 54 mmHg Heart Rate 68 /min Body Temperature 97.5 F O2 % BldC Oximetry 99 % 02/16/2012 11:09am Weight 185.00 lb Weight 83.916 kg BP Systolic 100 mmHg BP Diastolic 62 mmHg Heart Rate 68 /min 01/12/2012 8:10am Weight 190.00 lb Weight 86.184 kg BP Systolic 100 mmHg BP Diastolic 70 mmHg Heart Rate 68 /min Height 64.5 inches 5'4.50" BMI (Body Mass Index) 32.1 kg/m2 08/24/2011 2:52pm Weight 192.00 lb Weight 87.091 kg BP Systolic 100 mmHg BP Diastolic 70 mmHg Heart Rate 72 /min Body Temperature 98.4 F O2 % BldC Oximetry 98 % AT Room Air 10/27/2008 12:45pm Weight 180.00 lb Weight 81.648 kg 10/27/2008 12:47pm Weight 183.00 lb Weight 83.009 kg BP Systolic 120 mmHg BP Diastolic 60 mmHg Heart Rate 64 /min Body Temperature 97.0 F 09/25/2008 8:22am Weight 177.00 lb Weight 80.287 kg BP Systolic 96 mmHg BP Diastolic 60 mmHg Heart Rate 68 /min Body Temperature 97.0 F 09/01/2008 10:27am Weight 174.00 lb Weight 78.926 kg BP Systolic 108 mmHg BP Diastolic 60 mmHg Heart Rate 62 /min 11/21/2007 9:13am Weight 170.00 lb Weight 77.112 kg BP Systolic 110 mmHg BP Diastolic 68 mmHg Body Temperature 97.9 F Oral Height 64 inches 5'4" BMI (Body Mass Index) 29.2 kg/m2 09/30/2007 12:33pm Weight 176.00 lb Weight 79.834 kg BP Systolic 110 mmHg BP Diastolic 52 mmHg Heart Rate 64 /min Height 64 inches 5'4" BMI (Body Mass Index) 30.2 kg/m2 Last Menstrual Period [id number] 07/22/2007 1:44pm Weight 181.00 lb Weight 82.102 kg BP Systolic 108 mmHg BP Diastolic 62 mmHg Heart Rate 68 /min Height 64 inches 5'4" BMI (Body Mass Index) 31.1 kg/m2 11/06/2005 3:00pm Weight 185.00 lb Weight 83.916 kg BP Systolic 102 mmHg BP Diastolic 78 mmHg Body Temperature 98.1 F 09/01/2005 11:40am Weight 183.00 lb Weight 83.009 kg BP Systolic 110 mmHg BP Diastolic 78 mmHg Body Temperature 97.8 F 07/04/2005 1:58pm Weight 143.00 lb Weight 64.865 kg BP Systolic 120 mmHg BP Diastolic 70 mmHg Heart Rate 76 /min Respiratory Rate 18 /min 12/15/2002 2:12pm Weight 167.00 lb Weight 75.751 kg BP Systolic 110 mmHg BP Diastolic 70 mmHg Body Temperature 97.5 F 06/24/2002 9:50am BP Systolic 94 mmHg BP Diastolic 66 mmHg Heart Rate 76 /min Body Temperature 98.0 F 12/03/2001 1:45pm Weight 168.00 lb BP Systolic 100 mmHg BP Diastolic 60 mmHg Heart Rate 60 /min Respiratory Rate 18 /min Height 63.5 inches BMI (Body Mass Index) 29.8 kg/m2 Results Test Date Facility Test Result H/L Range Note Laboratory test 01/17/2019 [facility] Cytology SEE RESULT 1 finding [phone] BELOW Lipid Profile 01/17/2019 [facility] Triglycerides 286 mg/dL 2 (Trig/Chol/HDL) [phone] Cholesterol 235 mg/dL 3 HDL Cholesterol 50.9 mg/dL 4 LDL Cholesterol 127 mg/dL 5 Comp Metabolic Panel 01/17/2019 [facility] Sodium 139 mmol/L N 135-145 [phone] Potassium 4.0 mmol/L N 3.5-5.0 Chloride 103 mmol/L N 101-111 Co2 Carbon Dioxide 29 mmol/L N 22-32 Anion Gap 7 mmol/L N 2-11 Glucose 72 mg/dL N 70-100 Blood Urea Nitrogen 11 mg/dL N 6-24 Creatinine 0.83 mg/dL N 0.51-0.95 BUN/Creatinine Ratio 13.3 N 8-20 Calcium 9.8 mg/dL N 8.6-10.3 Total Protein 7.3 g/dL N 6.4-8.9 Albumin 4.4 g/dL N 3.2-5.2 Globulin 2.9 g/dL N 2-4 Albumin/Globulin Ratio 1.5 N 1-3 Total Bilirubin 0.50 mg/dL N 0.2-1.0 Alkaline Phosphatase 40 U/L N 34-104 Alt 20 U/L N 7-52 Ast 19 U/L N 13-39 Egfr Non- 74.7 >60 Egfr 90.4 >60 6 Laboratory test 01/06/2019 [facility] Point of Care 121 mg/dL High 70-100 7 finding [phone] Glucose Urine Culture And 01/06/2019 [facility] Urine Culture SEE RESULT 8 Sensitivities [phone] BELOW Bilrubin And 01/06/2019 [facility] Total 0.30 mg/dL N 0.2-1.0 Indirect [phone] Bilirubin Direct Bilirubin 0.10 mg/dL N 0.03-0.18 Indirect Bilirubin 0.2 mg/dL Low 0.3-1.0 Comp Metabolic Panel 01/06/2019 [facility] Sodium 138 mmol/L N 135-145 [phone] Potassium 3.8 mmol/L N 3.5-5.0 Chloride 109 mmol/L N 101-111 Co2 Carbon Dioxide 22 mmol/L N 22-32 Anion Gap 7 mmol/L N 2-11 Glucose 105 mg/dL High 70-100 Blood Urea Nitrogen 16 mg/dL N 6-24 Creatinine 0.79 mg/dL N 0.51-0.95 BUN/Creatinine Ratio 20.3 High 8-20 Calcium 8.4 mg/dL Low 8.6-10.3 Total Protein 6.7 g/dL N 6.4-8.9 Albumin 3.8 g/dL N 3.2-5.2 Globulin 2.9 g/dL N 2-4 Albumin/Globulin Ratio 1.3 N 1-3 Total Bilirubin 0.30 mg/dL N 0.2-1.0 Alkaline Phosphatase 31 U/L Low 34-104 Alt 14 U/L N 7-52 Ast 15 U/L N 13-39 Egfr Non- 79.1 >60 Egfr 95.7 >60 9 Laboratory test 01/06/2019 [facility] Amylase 32 U/L N 29-103 finding [phone] Lipase 26 U/L N 11.0-82.0 C Reactive Protein 5.80 mg/L N <8.01 Troponin-I (TnI) 0.00 ng/mL <0.04 10 Urinalysis Profile 01/06/2019 [facility] Urine Color Yellow [phone] Urine Appearance Cloudy Urine Specific [place] 1.015 N 1.010-1.030 Urine pH 8.0 N 5-9 Urine Urobilinogen Negative Negative Urine Ketones Negative Negative Urine Protein Negative Negative Urine Leukocytes Negative Negative Urine Blood 1+ Abnormal Negative Urine Nitrite Negative Negative Urine Bilirubin Negative Negative Urine Glucose Negative Negative Urine White Blood Cell Trace(0-5/hpf) Absent Urine Red Blood Cell Absent Absent Urine Bacteria Absent Absent Urine Squamous Epithelial Cell Present Abnormal Absent CBC Auto Diff 01/06/2019 [facility] White Blood 5.0 10^3/uL N 3.5-10.8 [phone] Count Red Blood Count 4.54 10^6/uL N 3.70-4.87 Hemoglobin 12.6 g/dL N 12.0-16.0 Hematocrit 38 % N 35-47 Mean Corpuscular Volume 83 fL N 80-97 Mean Corpuscular Hemoglobin 28 pg N 27-31 Mean Corpuscular HGB Conc 34 g/dL N 31-36 Red Cell Distribution Width 14 % N 10.5-15 Platelet Count 241 10^3/uL N 150-450 Mean Platelet Volume 7.4 fL N 7.4-10.4 Abs Neutrophils 3.3 10^3/uL N 1.5-7.7 Abs Lymphocytes 1.3 10^3/uL N 1.0-4.8 Abs Monocytes 0.3 10^3/uL N 0-0.8 Abs Eosinophils 0.0 10^3/uL N 0-0.6 Abs Basophils 0.0 10^3/uL N 0-0.2 Abs Nucleated RBC 0.0 10^3/uL Granulocyte % 65.8 % Lymphocyte % 26.5 % Monocyte % 6.9 % Eosinophil % 0.6 % Basophil % 0.2 % Nucleated Red Blood Cells % 0.0 Laboratory test 11/29/2018 In House Lab Strep Screen neg Neg finding (607)- - Laboratory test 09/29/2018 [facility] Rapid Strep POSITIVE Abnormal Negative 11 finding [phone] Molecular Laboratory test 08/30/2018 In House Lab Flu PCR NEG finding (607)- - Laboratory test 08/22/2017 In House Lab Strep Screen neg Neg finding (607)- - Rapid Influenza 08/16/2017 [facility] Influenza A POSITIVE Abnormal Negative 12 A & B Molecular [phone] Molecular Influenza B Molecular NEGATIVE Negative Laboratory 12/08/2016 [facility] Rapid Strep POSITIVE Abnormal Negative 13 test finding [phone] Molecular Arthritis 08/20/2015 [facility] Uric Acid 4.4 mg/dL N 2.3-6.6 Panel [phone] Erythrocyte Sed Rate 29 mm/Hr High 0-14 Rheumatoid Factor <15 IU/mL N <15 14 [place] (Anti-Nuclear AB) Screen Negative N Negative Lyme Western 08/20/2015 [facility] Lyme Disease Negative N Negative Blot [phone] IgG Ab WB Lyme Disease IgG Bands Present p41, kDa N Lyme Disease IgM Ab WB Negative N Negative Lyme Disease IgM Bands Present No bands detecte <SEE NOTE> kDa N 15 Lyme Disease Interpretation See Comment N 16 CBC Auto Diff 08/20/2015 [facility] White Blood 9.2 10^3/uL N 3.5-10.8 [phone] Count Red Blood Count 4.61 10^6/uL N 4.0-5.4 Hemoglobin 13.5 g/dL N 12.0-16.0 Hematocrit 40 % N 35-47 Mean Corpuscular Volume 87 fL N 80-97 Mean Corpuscular Hemoglobin 29 pg N 27-31 Mean Corpuscular HGB Conc 34 g/dL N 31-36 Red Cell Distribution Width 13 % N 10.5-15 Platelet Count 279 10^3/uL N 150-450 Mean Platelet Volume 8 um3 N 7.4-10.4 Abs Neutrophils 6.2 10^3/uL N 1.5-7.7 Abs Lymphocytes 2.3 10^3/uL N 1.0-4.8 Abs Monocytes 0.7 10^3/uL N 0-0.8 Abs Eosinophils 0.1 10^3/uL N 0-0.6 Abs Basophils 0 10^3/uL N 0-0.2 Abs Nucleated RBC 0 10^3/uL N Granulocyte % 67.6 % N 38-83 Lymphocyte % 24.4 % Low 25-47 Monocyte % 7.1 % N 1-9 Eosinophil % 0.7 % N 0-6 Basophil % 0.2 % N 0-2 Nucleated Red Blood Cells % 0 N CBC Auto Diff 09/24/2014 [facility] White Blood 5.4 10^3/uL N 4.8-10.8 [phone] Count Red Blood Count 4.62 10^6/uL N 4.0-5.4 Hemoglobin 13.3 g/dL N 12.0-16.0 Hematocrit 39 % N 35-47 Mean Corpuscular Volume 85 fL N 80-97 Mean Corpuscular Hemoglobin 29 pg N 27-31 Mean Corpuscular HGB Conc 34 g/dL N 31-36 Red Cell Distribution Width 14 % N 10.5-15 Platelet Count 253 10^3/uL N 150-450 Mean Platelet Volume 8 um3 N 7.4-10.4 Abs Neutrophils 3.3 10^3/uL N 1.5-7.7 Abs Lymphocytes 1.6 10^3/uL N 1.0-4.8 Abs Monocytes 0.4 10^3/uL N 0-0.8 Abs Eosinophils 0.1 10^3/uL N 0-0.6 Abs Basophils 0 10^3/uL N 0-0.2 Abs Nucleated RBC 0 10^3/uL N Granulocyte % 60.3 % N 38-83 Lymphocyte % 30.4 % N 25-47 Monocyte % 7.4 % N 1-9 Eosinophil % 1.0 % N 0-6 Basophil % 0.9 % N 0-2 Nucleated Red Blood Cells % 0.1 N CMP - Comprehensive 09/24/2014 [facility] Sodium 136 mmol/L N 133-145 Metabolic [phone] Potassium 4.3 mmol/L N 3.5-5.0 Chloride 104 mmol/L N 101-111 Co2 Carbon Dioxide 27 mmol/L N 22-32 Anion Gap 5 mmol/L N 2-11 Glucose 88 mg/dL N 70-100 Blood Urea Nitrogen 13 mg/dL N 6-24 Creatinine 0.91 mg/dL N 0.51-0.95 BUN/Creatinine Ratio 14.3 N 8-20 Calcium 9.3 mg/dL N 8.6-10.3 Total Protein 7.1 g/dL N 6.4-8.9 Albumin 4.3 g/dL N 3.2-5.2 Globulin 2.8 g/dL N 2-4 Albumin/Globulin Ratio 1.5 N 1-3 Total Bilirubin 0.60 mg/dL N 0.2-1.0 Alkaline Phosphatase 34 U/L N 34-104 Alt 12 U/L N 7-52 Ast 14 U/L N 13-39 Egfr Non- 68.8 N >60 Egfr 88.5 N >60 17 Lipid Panel 09/24/2014 [facility] Triglycerides 162 mg/dL N 18 [phone] Cholesterol 204 mg/dL N 19 HDL Cholesterol 47.0 mg/dL N 20 LDL Cholesterol 125 mg/dL N 21 Laboratory test 07/06/2014 [facility] Cytology RUN DATE: [phone] 07/07/ <SEE NOTE> HPV Rna W/ Reflex Genotype Negative N Negative 23 Urine DIP 07/06/2014 In House Lab Specific [place] 1.015 1.01-1.02 (607)- - Urine pH 6 5-6 Leukocytes TRACE Neg Urine Nitrites NEG Neg Total Protein, Urine NEG Neg Urine Glucose NORM Norm Urine Ketones NEG Neg Urobilinogen NORM Norm Urine Bilirubin NEG Neg Urine Blood 250 High Neg CBC Auto Diff 03/06/2014 [facility] White Blood 7.5 10^3/uL N 4.8-10.8 [phone] Count Red Blood Count 4.66 10^6/uL N 4.0-5.4 Hemoglobin 13.4 g/dL N 12.0-16.0 Hematocrit 39 % N 35-47 Mean Corpuscular Volume 84 fL N 80-97 Mean Corpuscular Hemoglobin 29 pg N 27-31 Mean Corpuscular HGB Conc 34 g/dL N 31-36 Red Cell Distribution Width 13 % N 10.5-15 Platelet Count 259 10^3/uL N 150-450 Mean Platelet Volume 8 um3 N 7.4-10.4 Abs Neutrophils 5.0 10^3/uL N 1.5-7.7 Abs Lymphocytes 1.7 10^3/uL N 1.0-4.8 Abs Monocytes 0.6 10^3/uL N 0-0.8 Abs Eosinophils 0.1 10^3/uL N 0-0.6 Abs Basophils 0 10^3/uL N 0-0.2 Abs Nucleated RBC 0.01 10^3/uL N Granulocyte % 67.5 % N 38-83 Lymphocyte % 22.6 % Low 25-47 Monocyte % 8.0 % N 1-9 Eosinophil % 1.5 % N 0-6 Basophil % 0.4 % N 0-2 Nucleated Red Blood Cells % 0.1 N Laboratory 03/06/2014 [facility] Lyme Disease Negative N Negative 24 test finding [phone] Serology Lipid Panel 06/24/2013 [facility] Triglycerides 289 mg/dL High 40-200 [phone] Cholesterol 215 mg/dL High Less than 200 HDL Cholesterol 49 mg/dL 40-60 25 Cholesterol/HDL Ratio 4.4 Average 1-4.44 LDL Cholesterol 108.2 High Less Than 100 26 Liver Panel 06/24/2013 [facility] Total Protein 6.6 g /dL 6.2-8.3 [phone] Albumin 3.9 g/dL 3.6-5.4 Globulin 2.7 g/dL 2-4 Albumin/Globulin Ratio 1.4 1-3 Total Bilirubin 0.6 mg/dL 0.4-1.5 Direct Bilirubin < 0.1 mg/dL Low 0.1-0.5 Indirect Bilirubin (SEE NOTE) mg/dL 0.3-1.0 27 Alkaline Phosphatase 33 U/L 30-110 Alt 17 U/L 14-54 Ast 16 U/L 12-42 Laboratory test 06/24/2013 [facility] Hemoglobin A1c 5.4 % Less than 28 finding [phone] 6.0 BMP - Basic 06/24/2013 [facility] Sodium 138 133- 145 Metabolic Panel [phone] mmol/L Potassium 4.4 mmol/L 3.5-5.0 Chloride 105 mmol/L 101-111 Co2 Carbon Dioxide 28.0 mmol/L 22-32 Anion Gap 5.0 mmol/L 2-11 Glucose 96 mg/dL 70-100 Blood Urea Nitrogen 11 mg/dL 6-24 Creatinine 0.80 mg/dL 0.50-1.40 BUN/Creatinine Ratio 13.8 8-20 Calcium 9.2 mg/dL 8.1-9.9 Egfr Non- 80.3 >60 Egfr 103.2 >60 29 CBC - Complete 06/24/2013 [facility] White Blood 6.3 10^3/uL 4.8-10.8 Blood Count [phone] Count Red Blood Count 4.52 10^6/uL 4.0-5.4 Hemoglobin 13.5 g/dL 12.0-16.0 Hematocrit 39 % 35-47 Mean Corpuscular Volume 87 fL 80-97 Mean Corpuscular Hemoglobin 30 pg 27-31 Mean Corpuscular HGB Conc 34 g/dL 31-36 Red Cell Distribution Width 13 % 10.5-15 Platelet Count 228 10^3/uL 150-450 Mean Platelet Volume 8 um3 7.4-10.4 Laboratory test 06/24/2013 [facility] TSH (Thyroid 0.88 0.34-5.60 30 finding [phone] Stimulating miu/mL Horm) Laboratory test 02/18/2013 In House Lab Strep Screen neg Neg finding (607)- - Laboratory test 02/16/2012 [facility] Cytology ------ ---- 31 finding [phone] ------ <SEE NOTE> Urine DIP 02/16/2012 In House Lab Leukocytes TRACE Neg (607)- - Urine Nitrites NEG Neg Urine pH 5 5-6 Total Protein, Urine NEG Neg Urine Glucose NORM Norm Urine Ketones NEG Neg Urobilinogen NORM Norm Urine Bilirubin NEG Neg Urine Blood NEG Neg Specific [place] NA Low 1.01-1.02 CBC Auto Diff 01/12/2012 [facility] White Blood 7.2 CUMM 4.8-10.8 [phone] Count Red Cell Count 4.64 CUMM 4.2-5.4 Hemoglobin 13.3 g/dL 12.0-16.0 Hematocrit 39 % 35-47 Mean Corpuscular Volume 84 um3 79-97 Mean Corpuscular Hemoglob 29 pg 27-31 Mean Corpuscular HGB Cone 34 g/dL 32-36 Redcell Distribution WDTH 14 % 10.5-15 Platelet Count 310 CUMM 150-450 Mean Platelet Volume 8.2 um3 7.4-10.4 Gran % 63.6 % 38-83 Lymph % 27.1 % 25-47 Mononuclear % 7.4 % 1-9 Eosinophil % 1.4 % 0-6 Basophil % 0.5 % 0-2 Abs Lymphs 2.0 1.0-4.8 Abs Mononuclear 0.5 0-0.8 Absolute Neutrophil Count 4.6 1.5-7.7 Abs Eosinophils 0.1 0-0.6 Abs Basophils 0 0-0.2 Comp Metabolic Panel 01/12/2012 [facility] Sodium 137 mmol/L 135-145 [phone] Potassium 3.9 mmol/L 3.5-5.0 Chloride 102 mmol/L 101-111 Co2 (Carbon Dioxide) 28.0 mmol/L 22-32 Anion Gap 7.0 mmol/L 2-11 32 Glucose 84 mg/dL 70-100 BUN 12 mg/dL 6-24 Creatinine 0.7 mg/dL 0.50-1.40 One Over Creatinine 1.42 BUN/Creatinine Ratio 17.1 8-20 Calcium 9.4 mg/dL 8.1-9.9 Total Protein 7.2 GM/DL 6.2-8.1 Albumin 4.2 GM/DL 3.6-5.4 Globulin 3.0 GM/DL 2-4 Albumin/Globulin Ratio 1.4 1-3 Bilirubin Total 0.9 mg/dL 0.4-1.5 33 Alkaline Phosphatase 38 U/L 30-110 Alt (SGPT) 17 U/L 14-54 Ast (Sgot) 17 U/L 12-42 eGFR Non- 94.2 > 60 eGFR 121.1 > 60 34 Lipid Profile 01/12/2012 [facility] Triglyceride 190 mg/dL 40-200 (Trig/Chol/HDL) [phone] Cholesterol 204 mg/dL High Less Than 200 35 High Density Lipoprotein 44 mg/dL 40-60 36 Cholesterol/HDL Ratio 4.64 AVERAGE High 1-4.44 Low Density Lipoprotein 122 mg/dL High Less Than 100 37 Laboratory test 01/12/2012 [facility] TSH 1.12 MIU/ ML 0.34-5.60 finding [phone] Vitamin D, 25 01/12/2012 [facility] 25-Hydroxy <4.0 ng/mL () Hydroxy [phone] Vitamin D2 25-Hydroxy Vitamin D3 23 ng/mL () 25-Hydroxy Vitamin D Total 23 ng/mL Abnormal () 38 Urine DIP 01/12/2012 In House Lab Leukocytes NEG Neg (607)- - Urine Nitrites NEG Neg Urine pH 5 5-6 Total Protein, Urine NEG Neg Urine Glucose NORM Norm Urine Ketones NEG Neg Urobilinogen NORM Norm Urine Bilirubin NEG Neg Urine Blood 250+MENSES High Neg Specific [place] NA Low 1.01-1.02 CBC With 07/02/2009 [facility] White Blood 10.9 CUMM High 4.8-10.8 Electronic Diff [phone] Count Stat Red Cell Count 4.29 CUMM 4.2-5.4 Hemoglobin 12.7 g/dL 12.0-16.0 Hematocrit 37 % 35-47 Mean Corpuscular Volume 86 um3 79-97 Mean Corpuscular Hemoglob 30 pg 27-31 Mean Corpuscular HGB Cone 34 g/dL 32-36 Redcell Distribution WDTH 12 % 10.5-15 Platelet Count 256 CUMM 150-450 Mean Platelet Volume 7.0 um3 Low 7.4-10.4 Gran % 71.3 % 38-83 Lymph % 20.0 % Low 25-47 Mononuclear % 7.9 % 1-9 Eosinophil % 0.5 % 0-6 Basophil % 0.3 % 0-2 Abs Lymphs 2.2 1.0-4.8 Abs Mononuclear 0.9 High 0-0.8 Absolute Neutrophil Count 7.8 High 1.5-7.7 Abs Eosinophils 0.1 0-0.6 Abs Basophils 0 0-0.2 39 CMP Stat 07/02/2009 [facility] Sodium 134 mmol/L Low 135-145 [phone] Potassium 3.8 mmol/L 3.5-5.0 Chloride 103 mmol/L 101-111 Co2 (Carbon Dioxide) 26.0 mmol/L 22-32 Anion Gap 5.0 mmol/L 2-11 40 Glucose 88 mg/dL 70-100 41 BUN 11 mg/dL 6-24 Creatinine 0.70 mg/dL 0.50-1.40 One Over Creatinine 1.40 BUN/Creatinine Ratio 15.7 8-20 Calcium 9.1 mg/dL 8.1-9.9 42 Total Protein 6.4 GM/DL 6.2-8.1 Albumin 3.4 GM/DL Low 3.6-5.4 Globulin 3.0 GM/DL 2-4 Albumin/Globulin Ratio 1.1 1-3 Bilirubin Total 0.6 mg/dL 0.4-1.5 43 Alkaline Phosphatase 30 U/L 30-110 Alt (SGPT) 26 U/L 14-54 Ast (Sgot) 24 U/L 12-42 eGFR Non- 101.8 > 60 eGFR 123.2 > 60 44 Laboratory test 07/02/2009 [facility] Amylase Stat 47 U/L 30-125 finding [phone] Lipase 27 U/L 22-51 Urinalysis Stat 07/02/2009 [facility] Ua Color YELLOW [phone] Appearance-Urine CLEAR Specific [place]-Ur 1.006 Low 1.010-1.030 Esterase-Urine NEGATIVE Negative Nitrite NEGATIVE Negative Gyglfjeeuouf-Xr-BQZ NEGATIVE Negative Protein-Urine NEGATIVE Negative PH-Urine 7.0 5-9 Blood-Urine NEGATIVE Negative Ketones-Urine NEGATIVE Negative Bilirubin-Ur NEGATIVE Negative Glucose-Urine NEGATIVE Negative Laboratory test 09/01/2008 [facility] Toxoplasma Igg AB <4 IU/mL <4 45 finding [phone] CMV Igg <4 AU/mL <4 46 09/01/2008 [facility] White Blood Count 6.7 CUMM 4.8-10.8 [phone] Red Cell Count 4.69 CUMM 4.2-5.4 Hemoglobin 13.9 g/dL 12.0-16.0 Hematocrit 40 % 35-47 Mean Corpuscular Volume 86 um3 79-97 Mean Corpuscular Hemoglob 30 pg 27-31 Mean Corpuscular HGB Cone 35 g/dL 32-36 Redcell Distribution WDTH 13 % 10.5-15 Platelet Count 296 CUMM 150-450 Mean Platelet Volume 7.6 um3 7.4-10.4 Gran % 64.9 % 38-83 Lymph % 22.9 % Low 25-47 Mononuclear % 9.7 % High 1-9 Eosinophil % 2.0 % 0-6 Basophil % 0.5 % 0-2 Abs Lymphs 1.5 1.0-4.8 Abs Mononuclear 0.7 0-0.8 Absolute Neutrophil Count 4.4 1.5-7.7 Abs Eosinophils 0.1 0-0.6 Abs Basophils 0 0-0.2 RPR NON REACTIVE Nonreactive Rubella Screen IMMUNE Immune Hepatitis B Surface Antigen Negative Negative 47 Type And Screen 09/01/2008 [facility] Patient Blood A POSITIVE [phone] Type Antibody Screen NEGATIVE Laboratory 09/01/2008 [facility] Rubella Igg Positive Positive 48 test finding [phone] Vad 09/01/2008 [facility] Vad Final NONREACTIVE Nonreactive 49 [phone] Laboratory 11/21/2007 In House Lab Strep Screen NEG Neg test finding (607)- - Laboratory 09/30/2007 [facility] Cytology --- 50 test finding [phone] -- <SEE NOTE> Urine DIP 09/30/2007 In House Lab Leukocytes + Neg (607)- - Urine Nitrites NEG Neg Urine pH 5 5-6 Total Protein, Urine NEG Neg Urine Glucose NORM Norm Urine Ketones NEG Neg Urobilinogen NORM Norm Urine Bilirubin NEG Neg Urine Blood TRACE Neg Specific [place] NEG Low 1.01-1.02 Laboratory test 09/20/2007 [facility] TSH 0.69 0.34-5.60 51 finding [phone] MIU/ML Comp Metabolic 09/20/2007 [facility] One Over 1.00 Panel [phone] Creatinine Anion Gap 7.0 mmol/L 2-11 52 Albumin/Globulin Ratio 1.4 1-3 Albumin 4.1 GM/DL 3.6-5.4 Alkaline Phosphatase 38 U/L 30-110 Alt (SGPT) 19 U/L 14-54 Ast (Sgot) 19 U/L 12-42 BUN 12 mg/dL 6-24 Calcium 9.7 mg/dL 8.7-10.2 Chloride 103 mmol/L 101-111 Co2 (Carbon Dioxide) 27.0 mmol/L 22-32 Globulin 2.9 GM/DL 2-4 Glucose 84 mg/dL 70-105 Potassium 4.5 mmol/L 3.5-5.0 Sodium 137 mmol/L 135-145 Bilirubin Total 1.1 mg/dL 0.4-1.5 Total Protein 7.0 GM/DL 6.2-8.1 BUN/Creatinine Ratio 12.0 8-20 Creatinine 1.0 mg/dL 0.5-1.4 Lipid Profile 09/20/2007 [facility] Cholesterol/HDL 4.37 1-4.44 (Trig/Chol/HDL) [phone] Ratio AVERAGE Cholesterol 201 mg/dL High Less Than 200 53 Triglyceride 149 mg/dL 40-200 High Density Lipoprotein 46 mg/dL 40-60 Low Density Lipoprotein 125 mg/dL High Less Than 100 54 Laboratory test 07/04/2005 [facility] TSH 0.78 0.34-5.60 finding [phone] MIU/ML Laboratory test 06/24/2002 In House Lab Strep Screen NEG Neg finding (607)- - Laboratory test 01/21/2002 In House Lab Strep Screen NEG Neg finding (607)- - Lipid Profile 12/04/2001 [facility] Triglycerides 212 mg/ dL 37.0 - 241.0 [phone] Cholesterol, Total 216 mg/dL High 120.0 - 200.0 55 HDL Cholesterol 53 mg/dL 35.0 - 9999.0 LDL Cholesterol 121 mg/dL 56 LDL/HDL Cholesterol 2.3 57 Chol/HDL Cholesterol 4.1 58 Comprehensive 12/04/2001 [facility] Glucose 81 mg/dL 61.0 - 112.0 Metabolic [phone] BUN 9 mg/dL 4.0 - 18.0 Creatinine, Serum 0.8 mg/dL 0.5 - 1.2 Sodium 141 mmol/L 136.0 - 145.0 Potassium 4.1 mmol/L 3.4 - 5.0 Chloride 103 mmol/L 98.0 - 107.0 Carbon Dioxide 30 mmol/L 23.0 - 33.0 Albumin 4.1 g/dL 3.6 - 4.5 Protein, Total 7.6 g/dL 6.2 - 8.0 Calcium 9.9 mg/dL 8.4 - 10.2 59 Alkaline Phosphatase 50 U/L 42.0 - 127.0 Sgot (Ast) 18 U/L 9.0 - 37.0 SGPT (Alt) 15 U/L 7.0 - 42.0 Bilirubin, Total 0.40 mg/dL 0.2 - 1.3 Laboratory test finding 12/03/2001 In House Lab Hemoglobin 13.5 (607)- - Urine DIP 12/03/2001 In House Lab Leukocytes NEG Neg (607)- - Urine Nitrites NEG Neg Urine pH 5 5-6 Total Protein, Urine NL Neg Urine Glucose NEG Norm Urine Ketones NL Neg Urobolinogen NEG Norm Urine Bilirubin NEG Neg Urine Blood NEG Neg Specific [place] N/A Low 1.01-1.02 1 SEE RESULT BELOW Name: EDEN BURRELL : [address]: Landy Cruz MD Acct: [id number] Unit: [id number] AGE: 43 Location: [facility] Re01/17/19 SEX: F Status: REG REF SPEC: [id number] LISS: 01/17/19-[address] [facility] [address]: Landy Cruz MD REQ: [id number] RECD: 01/17/191226 STATUS: SOUT _ ORDERED: TP IMAGE ANALYS, HPV/Thin Prep, HPV 16/18 GENE COMMENTS: [id number] Negative for Intraepithelial lesion or Malignancy Date Time Test Result Flag (u) Normal Range 01/17/19 1023 HPV RNA RFLX GE Negative Negative The high-risk HPV types detected by the assay include: 16, 18, 31, 33, 35, 39, 45, 51, 52, 56, 58, 59, 66, and 68. A. Ectocervical/Endocervical Specimen Adequacy: Satisfactory of evaluation Transformation zone component identified Patient Information: HPV: High risk HPV RNA testing regardless of pap results. HPV 16/18 Genotype Reflex Actual Specimen Date: 01/17/19 LMP If Unknown: 01/14 Spec Date if unknown: Unknown Signed by and Reported on: KATHRYN Gilmore (ASCP) 1520 This Pap test was evaluated with the assistance of the [facility] Test Imaging System. Due to cytologic findings at the yard associate microscope, comprehensive manual rescreening by a Medical Record Clerk may be required. The Pap Smear is a screening test designed to aid in the detection of premalignant and malignant conditions of the uterine cervix. It is not a diagnostic procedure and should not be used as the sole means of detecting cervical cancer. Both false- positive and false- negative reports do occur. Depending on your risk status, a Pap smear should be obtained and evaluated every 1-3 years. END OF REPORT DEPARTMENT OF PATHOLOGY, [address] [place] [address] Washington Tang M.D. Director [facility] # [id number] 2 Desirable: <150 Borderline High: 150-199 High: 200-499 Very High: >500 3 Desirable: <200 Borderline High: 200-239 High: >239 4 Low: <40 Desirable: 40-60 High: >60 5 Desirable: <100 Near Optimal: 100-129 Borderline High: 130-159 High: 160-189 Very High: >189 6 Because ethnic data is not always readily available, this report includes an eGFR for both -Americans and non- Americans. The National Kidney Disease Education Program (NKDEP) does not endorse the use of the MDRD equation for patients that are not between the ages of 18 and 70, are , have extremes of body size, muscle mass, or nutritional status, or are non- or non-. According to the National Kidney Foundation, irrespective of diagnosis, the stage of the disease is based on the level of kidney function: Stage Description GFR(mL/min/1.73 m(2)) 1 Kidney damage with normal or decreased GFR 90 2 Kidney damage with mild decrease in GFR 60-89 3 Moderate decrease in GFR 30-59 4 Severe decrease in GFR 15-29 5 Kidney failure <15 (or dialysis) 7 Medical Records Library Professor: [id number] SEE RESULT BELOW Name: BURRELL,LEAH : [address]: Michael Gomez MD Acct: [id number] Unit: [id number] AGE: 43 Location: ED Re01/06/19 SEX: F Status: DEP ER SPEC: [id number] LISS: 01/06/[address] [facility] [address]: Anabella ZAMUDIO REQ: [id number] RECD: 01/06/19 STATUS: SUK[facility]AR [place] DR: Landy Gomez MD _ SOURCE: URINE SPDESC: ORDERED: Urine Culture Procedure Result Reported Site Urine Culture Final 01/07/19803 ML No growth of clinically significant organisms * ML - Main Lab . END OF REPORT DEPARTMENT OF PATHOLOGY, [address] [place] [address] Washington Tang M.D. Director [facility] # [id number] 9 Because ethnic data is not always readily available, this report includes an eGFR for both -Americans and non- Americans. The National Kidney Disease Education Program (NKDEP) does not endorse the use of the MDRD equation for patients that are not between the ages of 18 and 70, are , have extremes of body size, muscle mass, or nutritional status, or are non- or non-. According to the National Kidney Foundation, irrespective of diagnosis, the stage of the disease is based on the level of kidney function: Stage Description GFR(mL/min/1.73 m(2)) 1 Kidney damage with normal or decreased GFR 90 2 Kidney damage with mild decrease in GFR 60-89 3 Moderate decrease in GFR 30-59 4 Severe decrease in GFR 15-29 5 Kidney failure <15 (or dialysis) 10 Troponin-I testing on Plasma Separator Tubes (PST) has a known false positive rate of 0.20-0.40%. All positive troponins reflex immediately to secondary confirmatory testing. Using the [employer]ioMx DxI 800 Access Immunoassay systems, the 99th percentile upper reference limit was demonstrated to be < 0.03 ng/mL. 11 Medical Records Library Professor: [id number] 12 Medical Records Library Professor: [id number] Medical Records Library Professor: [id number] 14 Test Performed by: [place] [address] Hotel Administrative Assistant: Joel Montano II, M.D., Ph.D. 15 No bands detected 16 Specific serologic response to B. burgdorferi infection is not detected, but cannot rule out early infection during which low or undetectable antibody levels to B. burgdorferi may be present. If clinically indicated, a new serum specimen should be submitted in 7-14 days. ADDITIONAL INFORMATION CDC criteria require >=5 bands for IgG or >=2 bands for IgM for the Immunoblot to be considered positive. Bands (e.g.,p41) may be detected in patients without Lyme disease, and patterns not meeting the CDC criteria should be interpreted with caution. Immunoblot should be ordered only on specimens that are positive or equivocal by a FDA-licensed Lyme disease antibody screening test (e.g., EIA). Test Performed by: [place] [address] Hotel Administrative Assistant: Joel Montano II, M.D., Ph.D. 17 Because ethnic data is not always readily available, this report includes an eGFR for both -Americans and non- Americans. The National Kidney Disease Education Program (NKDEP) does not endorse the use of the MDRD equation for patients that are not between the ages of 18 and 70, are , have extremes of body size, muscle mass, or nutritional status, or are non- or non-. According to the National Kidney Foundation, irrespective of diagnosis, the stage of the disease is based on the level of kidney function: Stage Description GFR(mL/min/1.73 m(2)) 1 Kidney damage with normal or decreased GFR 90 2 Kidney damage with mild decrease in GFR 60-89 3 Moderate decrease in GFR 30-59 4 Severe decrease in GFR 15-29 5 Kidney failure <15 (or dialysis) 18 Desirable <150 Borderline high 150-199 High 200-499 Very High >500 19 Desirable <200 Borderline high 200-239 High >239 20 Low <40 Desirable: 40-60 High: >60 21 Desirable <100 Near Optimal 100-129 Borderline high 130-159 High 160-189 Very High >189 22 RUN DATE: 07/07/14 [facility] LIVE PAGE 1 RUN TIME: [address] [place] [address] Specimen Inquiry Name: EDEN BURRELL : [address]: Gladis Cueto NP Acct: [id number] Unit: [id number] AGE: 38 Location: [facility] Re07/06/14 SEX: F Status: REG REF SPEC: [id number] LISS: 07/06/14-[address] [facility] [address]: Gladis Cueto CODING ASSISTANT REQ: [id number] RECD: 07/06/14 STATUS: SOUT _ ORDERED: IMAGE ANALYSIS, HPV/Thin Prep, HPV 16/18 GENE FINAL DIAGNOSIS Negative for Intraepithelial lesion or Malignancy HPV Result: Negative Normal Range: Negative The high-risk HPV types detected by the assay include: 16, 18, 31, 33, 35, 39, 45, 51, 52, 56, 58, 59, 66, and 68. A. Ectocervical/Endocervical Specimen Adequacy: Satisfactory of evaluation Transformation zone component identified Patient Information: HPV: High risk HPV RNA testing regardless of pap results. HPV 16/18 Genotype for NILM/HPV pos Actual Specimen Date: 07/06/14 Last Menstrual Date: 06/29/14 Date of Last Specimen: 02/16/12 Signed (signature on file) Danuta Cowart [place] (ASCP) 07/07/14 1616 This Pap test was evaluated with the assistance of the [employer]p Test Imaging System. Due to cytologic findings at the yard associate microscope, comprehensive manual rescreening by a Medical Record Clerk may be required. The Pap Smear is a screening test designed to aid in the detection of premalignant and malignant conditions of the uterine cervix. It is not a diagnostic procedure and should not be used as the sole means of detecting cervical cancer. Both false- positive and false- negative reports do occur. Depending on your risk status, a Pap smear shoudl be obtained and evaluated every 1-3 years. END OF REPORT * ML=Testing performed at Main Lab DEPARTMENT OF PATHOLOGY, [address] [place] [address] Washington Tang M.D. Director [facility] # [id number] 23 The high-risk HPV types detected by the assay include: 16, 18, 31, 33, 35, 39, 45, 51, 52, 56, 58, 59, 66, and 68. 24 Serologic response to B. burgdorferi infection is not detected, but cannot rule out early infection during which low or undetectable antibody levels to B. burgdorferi may be present. If clinically indicated, a new serum specimen should be submitted in 7-14 days. Test Performed by: [place] [address] Hotel Administrative Assistant: Giorgio Landin III, M.D. 25 HDL Interpretation: Undesirable: High Risk: Less than 40 mg/dL Desirable: Low Risk: Greater than 60 mg/dL 26 LDL Interpretation: Low Risk Optimal Level: LDL Less than 100 mg/dL Near or Above Optimal: LDL 100-129 mg/dL Borderline High Risk: LDL 130-159 mg/dL High Risk: LDL 160-189 mg/dL Very High Risk: LDL Greater than 189 mg/dL 27 Unable to calculate Ind Bili as D Bili is <0.1 Unable to calculate Ind Bili as D Bili is <0.1 28 Therapeutic target for the treatment of diabetes Mellitus patients is <7% HBA1C, and in selective patients <6.0%.Please refer to [place] [employer] Diabetic care guidelines for further information. 29 Because ethnic data is not always readily available, this report includes an eGFR for both -Americans and non- Americans. The National Kidney Disease Education Program (NKDEP) does not endorse the use of the MDRD equation for patients that are not between the ages of 18 and 70, are , have extremes of body size, muscle mass, or nutritional status, or are non- or non-. According to the National Kidney Foundation, irrespective of diagnosis, the stage of the disease is based on the level of kidney function: Stage Description GFR(mL/min/1.73 m(2)) 1 Kidney damage with normal or decreased GFR 90 2 Kidney damage with mild decrease in GFR 60-89 3 Moderate decrease in GFR 30-59 4 Severe decrease in GFR 15-29 5 Kidney failure <15 (or dialysis) 30 PT IS FASTING 31 ---- RUN DATE: 02/19/12 [facility] NMI LIVE PAGE 1 RUN TIME: 3 Specimen Inquiry RUN USER: INTERFACE -- Name: EDEN BURRELL Rahul Accmichael#: [id number] Status: REG REF Re02/16/12 Age/Sex: 36/F Unit#: [id number] Location: [facility] : [birth year] -- Specimen: [id number] SOUT Spec Date:02/16/[address]: Gladis flores NP Spec Type: CYTOLOGY Received:02/19/12 Copies to: SOURCE ECTOCERVICAL/ENDOCERVICAL Thin Prep with Reflex HPV Test PATIENT INFORMATION ACTUAL COLLECTION DATE: 02/16/12 DATE OF PRIOR SPECIMEN: 09/30/10 ADEQUACY OF SPECIMEN Satisfactory for evaluation * Transformation zone component identified * DIAGNOSIS NEGATIVE FOR INTRAEPITHELIAL LESION OR MALIGNANCY * This Pap test was evaluated with the assistance of the ThinPrep Pap Test Imaging System. The Pap Smear is a screening test designed to aid in the detection of premalign ant and malignant conditions of the uterine cervix. It is not a diagnostic procedure a nd should not be used as the sole means of detecting cervical cancer. Both false- positiv e and false-negative reports do occur. Depending on your risk status, a Pap smear chanda uld be obtained and evaluated every one to three years. Initial evaluation performed by Greta RONDON([facility]) 02/19/12 Final Interpretation electronically signed by: Greta RONDON([facility]) 02/19/12 1423 -- -- DEPARTMENT OF PATHOLOGY, [address] [place] [address] [facility] Permit #[id number] Washington Tang M.D. Director Henrik Carlson M.D. Inventory Control Manager Dir leighann -- 32 Anion gap measurement may be of limited value in the presence of any alkalosis, especially in a combined acid base disorder. . 33 A metabolite of Naproxen, O-desmethylnaproxen, has been shown to interfere with the Jendrassik-Mauro method for measuring total bilirubin. Samples from patients who have taken Naproxen have shown spurious elevation in total bilirubin levels. 34 Because ethnic data is not always readily available, this report includes an eGFR for both -Americans and non- Americans. The National Kidney Disease Education Program (NKDEP) does not endorse the use of the MDRD equation for patients that are not between the ages of 18 and 70, are , have extremes of body size, muscle mass, or nutritional status, or are non- or non-. According to the National Kidney Foundation, irrespective of diagnosis, the stage of the disease is based on the level of kidney function: Stage Description GFR(mL/min/1.73 m(2)) 1 Kidney damage with normal or decreased GFR 90 2 Kidney damage with mild decrease in GFR 60-89 3 Moderate decrease in GFR 30-59 4 Severe decrease in GFR 15-29 5 Kidney failure <15 (or dialysis) 35 CHOLESTEROL INTERPRETATION: Desirable: Less than 200 MG/DL Borderline-High Risk: 200-239 MG/DL High-Risk: 240 MG/DL and over 36 HDL INTERPRETATION: Undesirable: High Risk: Less than 40 MG/DL Desirable: Low Risk: Greater than 60 MG/DL 37 LDL INTERPRETATION: Low Risk Optimal Level: LDL Less than 100 MG/DL Near or Above Optimal: LDL 100-129 MG/DL Borderline High Risk: LDL 130-159 MG/DL High Risk: LDL 160-189 MG/DL Very High Risk: LDL Greater than 189 MG/DL 38 Interpretation: 10-24 (mild to moderate deficiency) -- REFERENCE VALUE -- 25-HYDROXY D TOTAL (D2+D3) Optimum levels in the normal population are 25-80 Test Performed by: [place] [address] Hotel Administrative Assistant: Giorgio Landin III, M.D. 39 Lymphopenia % 40 Anion gap measurement may be of limited value in the presence of any alkalosis, especially in a combined acid base disorder. . 41 Note change in reference range as of 04/02/08. The change was based on recommendations from the [place] [employer]. 42 Please note change in reference range effective 08 . 43 A metabolite of Naproxen, O-desmethylnaproxen, has been shown to interfere with the Jendrassik-Mauro method for measuring total bilirubin. Samples from patients who have taken Naproxen have shown spurious elevation in total bilirubin levels. 44 Because ethnic data is not always readily available, this report includes an eGFR for both -Americans and non- Americans. The National Kidney Disease Education Program (NKDEP) does not endorse the use of the MDRD equation for patients that are not between the ages of 18 and 70, are , have extremes of body size, muscle mass, or nutritional status, or are non- or non-. According to the National Kidney Foundation, irrespective of diagnosis, the stage of the disease is based on the level of kidney function: Stage Description GFR(mL/min/1.73 m(2)) 1 Kidney damage with normal or decreased GFR 90 2 Kidney damage with mild decrease in GFR 60-89 3 Moderate decrease in GFR 30-59 4 Severe decrease in GFR 15-29 5 Kidney failure <15 (or dialysis) 45 Test Performed by: [facility] D[facility] of [facility] Med and Pathology [address] [place] [address] Hotel Administrative Assistant: Giorgio Landin III, M.D. 46 Test Performed by: [facility] [address] [place] [address] Hotel Administrative Assistant: Giorgio Landin III, M.D. 47 Test Performed by: [facility] [address] [place] [address] Hotel Administrative Assistant: Giorgio Landin III, M.D. 48 Please note methodology change effective 11/21/07. Test Performed by: [facility] [address] [place] [address] Hotel Administrative Assistant: Giorgio Landin III, M.D. 49 FINAL INTERPRETATION: No HIV antibody is detected. . This information has been disclosed to you from confidential records which are protected by [place] State law. State law prohibits you from making further disclosure of this information without the specific written consent of the person to whom it pertains, or as otherwise permitted by law. Any unauthorized further disclosure in violation of state law may result in a fine or senior living sentence or both. General authorization for the release of medical or other information is not, except in limited circumstances set forth in Part 63, Title 10, of [facility], sufficient authorization for further disclosure. Disclosure of confidential HIV information that occurs as the result of a general authorization for the release of medical or other information will be in violation of the state law and may result in a fine or a senior living sentence. . 50 ---- RUN DATE: 10/02/07 [facility] NMI LIVE PAGE 1 RUN TIME: 1131 Specimen Inquiry RUN USER: INTERFACE [id number] EDEN SOTO 31/F <REG REF 09/30> ([id number]) SIOBHAN Mahmood MD, Ro Recinos -- Specimen: [id number] SOUT Spec Date: 09/30/[address]: Harmony mendez MD Spec Type: CYTOLOGY Received: 10/01/07-1104 Copies to: SOURCE ECTOCERVICAL/ENDOCERVICAL Thin Prep with Reflex HPV Test PATIENT INFORMATION ACTUAL COLLECTION DATE: 09/30/07 LAST MENSTRUAL PERIOD: 08/26/07 ADEQUACY OF SPECIMEN Satisfactory for evaluation * Transformation zone component identified * DIAGNOSIS NEGATIVE FOR INTRAEPITHELIAL LESION OR MALIGNANCY * This Pap test was evaluated with the assistance of the [facility] [place] [facility] Pap Test Imaging System. The Pap Smear is a screening test designed to aid in the detection of premalign ant and malignant conditions of the uterine cervix. It is not a diagnostic procedure a nd should not be used as the sole means of detecting cervical cancer. Both false- positive and false-negative reports do occur. Depending on your risk status, a Pap smear chanda uld be obtained and evaluated every one to three years. Final Interpretation electronically signed by: Lenin COWART(ASCP) 10/02/07 113 0 -- -- DEPARTMENT OF PATHOLOGY, [address] [place] [address] [facility] Permit #[id number] Washington Tang M.D. Director of Laboratories -- 51 FASTING 52 Anion gap measurement may be of limited value in the presence of any alkalosis, especially in a combined acid base disorder. . 53 Classification: Borderline High . 54 CALCULATED LDL APPROXIMATES THE VALUE OF A DIRECT LDL MEASUREMENT. Classification: Near or above optimal . 55 Cholesterol Risk Levels (NIH) Recommended: under 200 mg/dl Borderline : 200-239 mg/dl High Risk : Above 240 mg/dl . 56 LDL Cholesterol Risk Levels (NIH) Recommended: under 130 mg/dl Borderline: 131 - 159 mg/dl High Risk: above 160 mg/dl . 57 LDL/HDL Risk Ratio Levels MALE FEMALE 1/2 X Average 1.00 1.47 Average 3.55 3.22 2 X Average 6.25 5.03 3 X Average 7.99 6.14 . 58 CHOL/HDL Risk Ratio Levels MALE FEMALE 1/2 X Average 3.4 3.3 Average 5.0 4.4 2 X Average 9.5 7.0 3 X Average 24.0 11.0 . 59 Effective December Please Note CHANGE IN REFERENCE RANGE. . Procedures Date Code Description Status 10/27/2008 62863 Artificial Qcziovevkhxd-Oicvz-Hazarabv Completed 09/25/2008 39590 Artificial Zoyxskghdbng-Erseo-Dqejftom Completed 07/15/2007 2 Charge Back Bad Debt Write-Off Completed Encounters Type Date Location Provider Dx Diagnosis Office Visit 11/29/2018 Kenney Zapien NP J02.9 Acute pharyngitis, 3:00p unspecified Office Visit 08/30/2018 Kenney Zapien NP J06.9 Acute upper 11:30a respiratory infection, unspecified Office Visit 08/22/2017 Main Office Rahul Solano02.9 Acute pharyngitis, 9:45a Minerva, RIrina unspecified M72.2 Plantar fascial fibromatosis Office Visit 08/20/2015 3:30p Main Office Dustin Sandoval M25.561 Pain in right knee Storm, MATERIAL SPREADER-C Office Visit 03/03/2015 4:15p Main Office Dustin Sandoval 786.50 Pain Chest Unspec Storm, MATERIAL SPREADER-C Office Visit 07/06/2014 2:00p Main Office Gladis Cueto, V70.0 Examination General [employer] Medical Routine AT Health Care Facility V17.49 Family HX Of Other Cardiovascular Diseases V04.81 Need For Prophylactic Vaccination & Inoculation/Influenza Office Visit 06/26/2013 2:00p Main Office Alisa Augustin V70.0 Examination General Minerva Jones Medical Routine AT Health Care Facility 311 Depressive Disorder Not Elsewhere Spec 719.41 Pain Joint Shoulder Region V04.81 Need For Prophylactic Vaccination & Inoculation/Influenza Office Visit 02/18/2013 11:30a Main Office Gladis Cueto, 465.9 URI Upper [employer]C Respiratory Infections Acute Unspec Sites Office Visit 02/16/2012 11:00a Main Office Gladis Cueto, 959.7 Injury Knee Leg [employer] Ankle & Foot Other & Unspec 311 Depressive Disorder Not Elsewhere Spec 784.0 Headache V72.31 Routine Car Lubricator Examination 724.5 Backache Unspec Office Visit 01/12/2012 8:00a Main Office Gladis Cueto, V70.0 Examination General [employer]ER[employer]C Medical Routine AT Health Care Facility 311 Depressive Disorder Not Elsewhere Spec 780.79 Malaise And Fatigue Other 706.1 Acne Other 959.7 Injury Knee Leg Ankle & Foot Other & Unspec 278.00 Obesity Unspec V74.1 Screening Examination Pulmonary Tuberculosis Office Visit 08/24/2011 2:45p Main Office Dustin Sandoval 465.9 URI Upper Storm, MATERIAL SP[employer]ER-C Respiratory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
[2019-01-27 21:31] VITALS: BP 112/77
[2019-01-27] MEDS ORDERED: Benzonatate CAP* 100 MG PO ONE (21:37)
== END 2019-01-27 21:54 | disposition home or self-care (01) ==
LOC: UCEAST 21:22
DX: R05 Cough (principal)
CPT/HCPCS: 81003; 99212; A9270-GY; G0463

== ENCOUNTER 2019-10-24 11:07 | Emergency (ER) | payer OTHER ==
[2019-10-24 11:57] VITALS: BP 114/74
--- NOTE | 2019-10-24 13:24 | UC ---
Throat Pain/Nasal Rafael HPI - HPI Summary HPI Summary: 4 DAYS AGO HAD SORE THROAT, SUBJECTIVE FEVER, COUGH, HEADACHE AND FATIGUE. ONLY LASTED ONE DAY BUT THE SORE THROAT HAS PERSISTED. IS WORRIED ABOUT STREP. - History of Current Complaint Chief Complaint: UCGeneralIllness Stated Complaint: SORE THROAT, HEADACHE Time Seen by Provider: 10/24/19 12:29 Hx Obtained From: Patient Hx Last Menstrual Period: 10/17/19 Onset/Duration: Gradual Onset, Lasting Days, Still Present Severity: Moderate Pain Intensity: 7 Pain Scale Used: 0-10 Numeric Cough: Nonproductive Associated Signs & Symptoms: Positive: Fever - Allergies/Home Medications Allergies/Adverse Reactions: Allergies Allergy/AdvReac Type Severity Reaction Status Date / Time No Known Allergies Allergy Verified 10/24/19 11:51 Home Medications: Home Medications FLUoxetine CAP* [Prozac CAP*] 40 mg PO DAILY 03/06/14 [History Confirmed ] Loratadine [Claritin 10 MG CAP] 10 mg PO ONCE 10/24/19 [History Confirmed ] PMH/Surg Hx/FS Hx/Imm Hx Previously Healthy: Yes - Surgical History Surgical History: None - Family History Known Family History: Positive: Hypertension - Social History Alcohol Use: Occasionally Substance Use Type: None Smoking Status (MU): Never Smoked Tobacco Have You Smoked in the Last Year: No - Immunization History Most Recent Influenza Vaccination: 2015/2016 season Review of Systems All Other Systems Reviewed And Are Negative: Yes Constitutional: Positive: Fever, Fatigue ENT: Positive: Sore Throat, Nasal Discharge Respiratory: Positive: Cough Cardiovascular: Positive: Negative Gastrointestinal: Positive: Negative Physical Exam Triage Information Reviewed: Yes Appearance: Well-Appearing, No Pain Distress, Well-Nourished Vital Signs: Initial Vital Signs Temp 98.8 F 10/24/19 11:52 Pulse 75 10/24/19 11:52 Resp 16 10/24/19 11:52 BP 114/74 10/24/19 11:52 Pulse Ox 100 10/24/19 11:52 Laboratory Tests 10/24/19 12:40 Group A Strep Rapid Negative Vital Signs Reviewed: Yes Eyes: Positive: Conjunctiva Clear ENT: Positive: Hearing grossly normal, Pharynx normal, TMs normal. Negative: Tonsillar swelling, Tonsillar exudate Neck: Positive: Supple, Nontender, No Lymphadenopathy Respiratory Exam: Normal Cardiovascular Exam: Normal Abdomen Description: Positive: Soft Musculoskeletal: Positive: No Edema Neurological: Positive: Alert Psychological: Positive: Age Appropriate Behavior Skin: Negative: Rashes Throat Pain/Nasal Course/Dx - Course Course Of Treatment: STREP NEGATIVE. LIKELY VIRALLY MEDIATED SYMPTOMS THAT SHOULD RESOLVE ON THEIR OWN WITH TIME. REST, HYDRATE, OTC MEDS NEEDED. FOLLOW-UP IF NOT IMPROVING EXPECTED. - Differential Dx/Diagnosis Provider Diagnosis: Pharyngitis Discharge ED - Sign-Out/Discharge Documenting (check all that apply): Patient Departure All imaging exams completed and their final reports reviewed: No Studies - Discharge Plan Condition: Stable Disposition: HOME Patient Education Materials: Pharyngitis (ED) Referrals: Landy Abreu MD [Primary Care Provider] - If Needed Additional Instructions: STREP NEGATIVE. YOUR SYMPTOMS ARE LIKELY VIRALLY MEDIATED AND SHOULD RESOLVE ON THEIR OWN WITH TIME. NO INDICATION FOR ANTIBIOTICS AT PRESENT. REST, HYDRATE, OTC MEDS NEEDED. SEEK FOLLOW-UP IF YOU ARE NOT IMPROVING OVER THE NEXT 1-2 WEEKS. - Billing Disposition and Condition Condition: STABLE Disposition: Home
== END 2019-10-24 13:25 | disposition home or self-care (01) ==
LOC: UCEAST 11:07
DX: J02.9 Acute pharyngitis, unspecified (principal); R50.9 Fever, unspecified
CPT/HCPCS: 87651; 99211; G0463

== ENCOUNTER 2021-07-30 18:29 | Observation (INO) ==
[2021-07-30] MEDS ORDERED: Ondansetron ODT 4 mg TAB 4 MG TAB PO ONE (19:12)
[2021-07-30 19:27] LABS: ABS Basophils 0.1 10^3/ul (0-0.2); ABS Eosinophils 0.1 10^3/ul (0-0.6); ABS Lymphocytes 1.2 10^3/ul (1.0-4.8); ABS Monocytes 0.6 10^3/ul (0-0.8); ABS Neutrophils 9.5 10^3/ul (1.5-7.7); Eosinophil % 0.5 %; Hematocrit 38 % (35-47); Hemoglobin 12.8 g/dL (12.0-16.0); Lymphocyte % 10.9 %; Mean Corpuscular HGB Conc 34 g/dL (31-36); Mean Corpuscular Hemoglobin 28 pg (27-31); Mean Corpuscular Volume 85 fL (80-97); Mean Platelet Volume 7.4 fL (7.4-10.4); Platelet Count 329 10^3/uL (150-450); Red Blood Count 4.52 10^6 /uL (3.70-4.87); Red Cell Distribution Width 13 % (10-15); White Blood Count 11.4 10^3/uL (3.5-10.8)
[2021-07-30 19:42] LABS: INR 1.11 (0.86-1.15)
[2021-07-30] MEDS ORDERED: NS 0.9% 1000 ml BAG 1,000 ML IV ONE (19:47)
[2021-07-30 19:49] LABS: ALT 84 U/L (7-52); AST 155 U/L (13-39); Albumin 3.8 g/dL (3.2-5.2); Albumin/Globulin Ratio 1.2 (1-3); Alkaline Phosphatase 65 U/L (35-149); Anion Gap 8 mmol/L (2-11); Blood Urea Nitrogen 12 mg/dL (6-24); CO2 Carbon Dioxide 24 mmol/L (22-32); Calcium 8.9 mg/dL (8.6-10.3); Chloride 104 mmol/L (101-111); Globulin 3.2 g/dL (2-4); Glucose 127 mg/dL (70-100); Lipase 25 U/L (11.0-82.0); Potassium 3.5 mmol/L (3.5-5.0); Sodium 136 mmol/L (135-145); eGFR CKD-EPI 84.3 (>60)
[2021-07-30 19:57] LABS: HCG Pregnancy < 0.60 mIU/mL
[2021-07-30 20:16] LABS: C Reactive Protein 14.72 mg/L (<8.01)
[2021-07-30] MEDS ORDERED: Piperacillin/Tazobac ADVAN 3.375 GM in NS 0.9% 100 ml BAG 100 ML IV ONE (22:21)
[2021-07-30] MEDS ORDERED: HYDROmorphone 1 MG/1 ML SYRINGE IV SLOW PU PRN (22:27)
[2021-07-30] MEDS ORDERED: Ondansetron 4 mg VIAL 2 MG/ML 2 ml VIAL IV PRN (22:27)
[2021-07-30] MEDS ORDERED: NS 0.9% 1000 ml BAG 1,000 ML IV SCH (22:45)
[2021-07-30] MEDS ORDERED: Piperacillin/Tazobactam VIAL 3.375 GM in NS 0.9% 100 ml BAG 100 ML IVPB SCH (23:00)
[2021-07-31 01:15] LABS: Urine Appearance Clear; Urine Bilirubin Negative (Negative); Urine Blood 1+ (Negative); Urine Color Yellow; Urine Glucose Negative (Negative); Urine Ketones Negative (Negative); Urine Nitrite Negative (Negative); Urine Protein Negative (Negative); Urine Specific Gravity 1.012 (1.002-1.030); Urine Urobilinogen Negative (Negative)
[2021-07-31 01:21] LABS: Urine Bacteria Absent (Absent); Urine Red Blood Cell Trace(0-2/hpf) (Absent); Urine Squamous Epithelial Cell Present (Absent); Urine White Blood Cell Trace(0-5/hpf) (Absent)
[2021-07-31] MEDS ORDERED: Zosyn per Pharmacy NOTE FOLLOW UP PRN (02:56)
[2021-07-31 06:27] LABS: ABS Eosinophils 0.1 10^3/ul (0-0.6); ABS Lymphocytes 1.7 10^3/ul (1.0-4.8); ABS Monocytes 0.3 10^3/ul (0-0.8); Eosinophil % 2.6 %; Hematocrit 34 % (35-47); Hemoglobin 11.9 g/dL (12.0-16.0); Lymphocyte % 33.3 %; Mean Corpuscular HGB Conc 35 g/dL (31-36); Mean Corpuscular Hemoglobin 30 pg (27-31); Mean Corpuscular Volume 85 fL (80-97); Mean Platelet Volume 7.6 fL (7.4-10.4); Platelet Count 277 10^3/uL (150-450); Red Blood Count 4.02 10^6 /uL (3.70-4.87); Red Cell Distribution Width 13 % (10-15); White Blood Count 5.2 10^3/uL (3.5-10.8)
[2021-07-31] MEDS: Piperacillin/Tazobactam VIAL 3.375 GM in NS 0.9% 100 ml BAG 100 ML IVPB SCH ×3 (06:41→22:30)
[2021-07-31 06:42] LABS: Albumin 3.4 g/dL (3.2-5.2); Albumin/Globulin Ratio 1.3 (1-3); Calcium 8.3 mg/dL (8.6-10.3); Globulin 2.7 g/dL (2-4); Potassium 3.9 mmol/L (3.5-5.0); Total Bilirubin 0.9 mg/dL (0.2-1.0); Total Protein 6.1 g/dL (6.4-8.9); eGFR CKD-EPI 84.3 (>60)
[2021-07-31] MEDS ORDERED: NS 0.9% 1000 ml BAG 1,000 ML IV SCH (23:59)
[2021-08-01] MEDS: Piperacillin/Tazobactam VIAL 3.375 GM in NS 0.9% 100 ml BAG 100 ML IVPB SCH (06:22)
[2021-08-01] MEDS ORDERED: Lidocaine 2% PF 5 ML VIAL ONE (09:02)
[2021-08-01] MEDS ORDERED: Propofol 10 MG/ML 20 ML BTL ONE ×2 (09:02→11:01)
[2021-08-01] MEDS ORDERED: fentaNYL 100 mcg/2 ml 50 MCG/ML VIAL ONE (09:03)
[2021-08-01] MEDS ORDERED: Midazolam 2 mg/2 ml VIAL 1 mg/ml 2 ml VIAL (2 mg) ONE (09:03)
[2021-08-01] MEDS ORDERED: Rocuronium 50 mg VIAL 10 mg/ml 5 ml VIAL (50 mg) ONE ×2 (09:03→11:01)
[2021-08-01] MEDS ORDERED: Bupivacaine 0.25% SDV 30 ML ONE (09:23)
[2021-08-01] MEDS ORDERED: Lidocaine 1% w EPI 1:100,000 MDV 20 ML VIAL ONE (09:23)
[2021-08-01] MEDS ORDERED: HYDROmorphone 0.5 MG/0.5 ML SYRINGE ONE ×2 (10:02→10:21)
[2021-08-01] MEDS ORDERED: Ondansetron 4 mg VIAL 2 MG/ML 2 ml VIAL ONE (10:02)
[2021-08-01] MEDS ORDERED: Dexamethasone IV 4 MG/ML VIAL 1 ml VIAL ONE (10:02)
[2021-08-01] MEDS ORDERED: DiMENhydriNATE IV 50 mg/ml 1 ml VIAL IV PUSH PRN (10:13)
[2021-08-01] MEDS ORDERED: HYDROmorphone 1 MG/1 ML SYRINGE IV PRN (10:13)
[2021-08-01] MEDS ORDERED: Naloxone 0.4 mg VIAL 0.4 mg/ml 1 ml VIAL IV PRN (10:13)
[2021-08-01] MEDS ORDERED: diPHENhydraMINE IV 50 MG/ML 1 ml VIAL (BENADRYL) IV PRN (10:13)
[2021-08-01] MEDS ORDERED: Acetaminophen IV 1 GM/100ML 100 ML IV ONE (10:15)
[2021-08-01] MEDS ORDERED: DiMENhydriNATE IV 50 mg/ml 1 ml VIAL ONE (11:55)
[2021-08-01] MEDS ORDERED: HYDROmorphone 1 MG/1 ML SYRINGE ONE (11:59)
[2021-08-01 13:26] VITALS: BP 121/79
== END 2021-08-01 13:26 | disposition home or self-care (01) ==
LOC: ED 18:29 → INTOOBSV 22:27 → EDHOLD 22:27 → SSU 23:11
PROVIDERS: ADMIT Surgery; ATTEND Surgery